=== PATIENT | female | born 1960 | race Caucasian/White ===

== ENCOUNTER 2018-05-21 08:22 | Emergency (ER) | payer OTHER, SELFPAY ==
[2018-05-21 08:24] VITALS: BP 199/116; PULSE 81; RESP 17; TEMP 36.6; O2SAT 97; BMI 38.9
[2018-05-21 08:42] VITALS: BP 190/96; PULSE 77; RESP 16; O2SAT 97
--- NOTE | 2018-05-21 08:51 | RAD_ITS ---
STUDY: X-RAY - LEFT KNEE REASON FOR EXAM: Female, 57 years old. Patient fell in 2017. Pain since then. TECHNIQUE: 3 view(s) of the knee. COMPARISON: None. FINDINGS: Normal visualized distal femur. Normal visualized proximal tibia and fibula. Normal proximal tibiofibular articulation. Normal medial femorotibial compartment. Normal lateral femorotibial compartment. Normal patellofemoral articulation. The soft tissue structures are unremarkable. RAD/Knee 3 Views IMPRESSION: No recent or remote fracture or dislocation of the left knee. Electronically Signed: David Costello MD at 9:15 EST , Service support ,
[2018-05-21] MEDS: Ketorolac 15 MG/ML Vial IV (09:11)
[2018-05-21] MEDS: Ondansetron 4 MG/2 ML Vial IV (09:18)
[2018-05-21] MEDS: Morphine 4 MG/ML Syringe IV (09:20)
--- NOTE | 2018-05-21 10:15 | ED.VISSUMM ---
- ER Visit Summary Date of Service: 05/21/18 Chief Complaint: Left knee pain History of Present Illness: The patient is a 57 F who states she had a work-related injury dating back to 2017. She states MRI that was performed at a [facility] where she lived at that time revealed a fusion and by lateral meniscus injuries. She has not undergone repair since this is a work-related injury, according to the patient. She states she went down one step and felt a tear and fell. She presents with severe pain. Physical Examination: There appears to be slight swelling of the left knee compared to the right. The patella is not ballotable. Unable to appreciate secondary to body habitus if she has an effusion. Varus valgus stress testing is remarkable for significant laxity with no appreciable endpoint of the lateral collateral ligament. Attempt to perform Jose's test and modified Simone's test resulted in patient screaming and unable to perform test. There is no pain to palpation in the popliteal fossa. There is no palpable mass in the popliteal fossa. She is able to hold her leg in extension for 2-3 seconds before lowering her leg because of pain. DP and PT pulses are palpable. There is no pain the patient the pelvis or left hip. There is no pain the patient of the lateral or medial malleolus. Test Results: Three-view x-ray was obtained interpreted by me as negative. There is no fracture, subluxation or dislocation. The patella is not high riding. There is no pull off fracture of the tibial spines. There is no obvious effusion noted. Emergency Department Course and Treatment: X-ray was obtained to evaluate for fracture. Treatment Plan: Knee immobilizer since she has an unstable knee and crutches. She was referred to Dr. Alberto Pringle who is on-call for orthopedics Disposition: Discharge to home with family Impression: Lateral collateral ligament tear left secondary to fall initial encounter This note was generated with InfoVista dictation software. It may contain incorrect words, spelling, and punctuation that were not noted in review of the chart prior to signing ED Disposition - Plan for ED Patient: Disposition: Home or Assisted Living Instructions: ED Sprain Knee Collateral Ligaments Prescriptions: Hydrocodone Bitart/Apap 5-325 [[place] 5MG-325MG] 1 tab PO Q6H PRN PRN 3 Days #10 tab PRN Reason: Pain Referrals: Care Physician,No Primary [Primary Care Provider] - Virgil Pringle MD [STAFF PHYSICIAN] - 5-7 Days
--- NOTE | 2018-05-21 10:19 | ED.DCSUM_ITS ---
- ER Visit Summary Date of Service: 05/21/18 Chief Complaint: Left knee pain History of Present Illness: The patient is a 57 F who states she had a work- related injury dating back to 2017. She states MRI that was performed at a [facility] where she lived at that time revealed a fusion and by later al meniscus injuries. She has not undergone repair since this is a work-related injury, according to the patient. She states she went down one step and felt a tear and fell. She presents with severe pain. Physical Examination: There appears to be slight swelling of the left knee compared to the right. The patella is not ballotable. Unable to appreciate secondary to body habitus if she has an effusion. Varus valgus stress testing is remarkable for significant laxity with no appreciable endpoint of the lateral collateral ligament. Attempt to perform Jose's test and modified Simone's test resulted in patient screaming and unable to perform test. There is no pain to palpation in the popliteal fossa. There is no palpable mass in the popliteal fossa. She is able to hold her leg in extension for 2-3 seconds before lowering her leg because of pain. DP and PT pulses are palpable. There is no pain the patient the pelvis or left hip. There is no pain the patient of the lateral or medial malleolus. Test Results: Three-view x-ray was obtained interpreted by me as negative. There is no fracture, subluxation or dislocation. The patella is not high riding. There is no pull off fracture of the tibial spines. There is no obvious effusion noted. Emergency Department Course and Treatment: X-ray was obtained to evaluate for fracture. Treatment Plan: Knee immobilizer since she has an unstable knee and crutches. She was referred to Dr. Alberto Pringle who is on-call for orthopedics Disposition: Discharge to home with family Impression: Lateral collateral ligament tear left secondary to fall initial encounter This note was generated with Mieple dictation software. It may contain incorrect words, spelling, and punctuation that were not noted in review of the chart prior to signing ED Disposition - Plan for ED Patient: Disposition: Home or Assisted Living Instructions: ED Sprain Knee Collateral Ligaments Prescriptions: Hydrocodone Bitart/Apap 5-325 [[place] 5MG-325MG] 1 tab PO Q6H PRN PRN 3 Days #10 tab PRN Reason: Pain Referrals: Care Physician,No Primary [Primary Care Provider] - Virgil Pringle MD [STAFF PHYSICIAN] - 5-7 Days
== END 2018-05-21 11:10 | disposition home or self-care (01) ==
PROVIDERS: Emergency Provider Emergency Medicine
DX: S83.422A Sprain of lateral collateral ligament of left knee, initial encounter (principal); W10.9XXA Fall (on) (from) unspecified stairs and steps, initial encounter; Y93.9 Activity, unspecified; Y92.9 Unspecified place or not applicable; Y99.0 Civilian activity done for income or pay; E66.9 Obesity, unspecified; Z68.38 Body mass index [BMI] 38.0-38.9, adult; Z72.0 Tobacco use
CPT/HCPCS: 73562; 96374; 96375; 99285; J7030; A4216; J2405

== ENCOUNTER → 2020-06-13 15:59 | Outpatient (CLI) | payer OTHER, SELFPAY ==
--- NOTE | 2020-06-13 16:05 | RAD_ITS ---
HISTORY: CONTUSION KNEE Technique: 4 views of the right knee Comparison: June 13, 2020, 6 minutes earlier of the left knee. Findings: No acute fracture is perceived. Within the medial retinaculum there appears to be an ossification. Osseous mineralization, joint spaces, and alignment otherwise appear preserved as imaged. No focal abnormality or radiopaque foreign body is seen in the surrounding soft tissues. RAD/Knee 4 or More Views IMPRESSION: No acute osseous abnormality identified in the knee. at 0641 Reported and signed by: Fidencio Foss MD Electronically Signed: Fidencio Foss MD at 6:40 EST Tel , Service support ,
--- NOTE | 2020-06-13 16:05 | RAD_ITS ---
HISTORY: CONTUSION KNEE Technique: 4 images of the left knee Comparison: May 21, 2018 Findings: No acute fracture is perceived. There is a prominent medial tibial spine with likely an osteophyte on the spine. This is slightly more prominent than the previous study. Small osteophyte on the medial aspect of the medial portion of the tibial plateau. Minimal patellofemoral arthritis. No focal abnormality or radiopaque foreign body is seen in the surrounding soft tissues. RAD/Knee 4 or More Views IMPRESSION: Some arthritis within the left knee display a greater degree than May 21, 2018 at 0643 Reported and signed by: Fidencio Foss MD Electronically Signed: Fidencio Foss MD at 6:42 EST Tel , Service support ,
== END ==
PROVIDERS: Referring Provider Anesthesiology Pain Medicine; Visit Provider Anesthesiology Pain Medicine
DX: S80.01XA Contusion of right knee, initial encounter (principal); M17.12 Unilateral primary osteoarthritis, left knee
CPT/HCPCS: 73564

== ENCOUNTER → 2021-10-28 | Outpatient (CLI) | payer BC, OTHER, SELFPAY ==
--- NOTE | 2021-10-28 14:12 | CT_ITS ---
STUDY: CT SCAN LOWER EXTREMITY LEFT REASON FOR EXAM: Female, 61 years old. PREOP for left knee replacement. [facility] protocol RADIATION DOSAGE (If Supplied By Facility): CTDIvol = ( 20.10 ) mGy, DLP = ( 1231.82 ) mGycm. Individualized dose optimization techniques were used for this CT.? TECHNIQUE: Multiple axial tomographic images of the left lower extremity were obtained. Coronal and sagittal reconstruction was obtained as well. COMPARISON: None. FINDINGS: Imaging of the left hip joint was obtained. No significant joint space narrowing is seen. No significant bone abnormality is present. Imaging of the left knee joint was obtained. There is a moderate degree of joint space narrowing of the medial compartment of the knee joint with degenerative spur formation of the distal lateral femoral condyle. Mild degree of joint space narrowing of the patellofemoral joint. There is a 1.3 cm x 0.5 cm well-corticated bony fragment along the posterior aspect of the knee joint suggestive of possible loose body. There are 2 small rounded calcification this deep subcutaneous tissues overlying the lateral proximal tibia. Imaging of the ankle joint was obtained. No significant abnormality is seen. CT/Extremity Lower without Contra IMPRESSION: Osteoarthritis of the knee joint as described. Electronically Signed: Erick Wells MD at 14:49 EDT ,
== END | disposition home or self-care (01) ==
PROVIDERS: PCP Internal Medicine; Referring Provider Specialist; Visit Provider Specialist
DX: M17.2 Bilateral post-traumatic osteoarthritis of knee (principal)
CPT/HCPCS: 73700

== ENCOUNTER 2021-11-11 15:34 | Observation (INO) | payer OTHER, BC, SELFPAY ==
--- NOTE | 2021-10-27 14:24 | PCM.HP.BLA ---
History and Physical History and Physical [facility] Patient Name: Lashay Barron : 1960 From:? MICHELLE PEDERSEN PA-C? DATE OF SURGERY:? 11/11/2021 SCHEDULED PROCEDURE:? left total knee arthroplasty HISTORY OF PRESENT ILLNESS: Preoperative history and physical exam was performed on October 26, 2021.? This is a 61-year-old female who is been having pain since 2017 with bilateral knees.? The left knee has been worse than the right.? She states the right knee is also progressively getting worse.? Patient did have a work injury with both knees on December 20, 2016 when she fell onto both knees at that time.? Her pain is located over the medial joint line bilaterally and laterally over the left knee.? Pain does occasionally awaken her at night.? Patient states her pain and symptoms have continued to increase and she is getting locking in the left knee.? Her pain has been intermittent, aching, sharp, stabbing, sore.? It is increased with going up and down stairs, sitting, walking.? She has difficulty with activities of daily living including bathing, housework, shopping.? She has fallen in the past.? She feels unsafe kneeling on her knees due to the pain.? Patient has had previous corticosteroid injections.? She has had previous bilateral knee arthroscopies by outside physician.? Patient had left knee arthroscopy partial medial and lateral meniscectomy on September 28, [address] Whitman.? Patient also had previous right knee arthroscopy on February 12, 2019 involving medial femoral chondroplasty and partial lateral meniscectomy.? Patient has been using a cane for approximately 6 months for ambulatory assistance.? She has been wearing braces for over 2-1/2 years.? Despite conservative measures patient has continued to have increased knee pain bilaterally.? Right knee is continuing to get worse as well.? After failing conservative measures and discussing treatment options with Dr. Virgil Pringle, the patient does wish to proceed with a left total knee arthroplasty.? Patient currently denies any chest pain, shortness of breath, fevers chills, recent infections.? We are obtaining surgical clearance from the primary care physician Dr. Rodriguez.? Patient does have medical history pertinent for Depression, anxiety, peripheral vascular disease.? Patient denies any previous history of DVT or pulmonary embolism. REVIEW OF SYSTEMS: Review Of Systems: Constitutional: Denies anorexia, change in appetite, fever, difficulty sleeping, weight change. Cardiovasular: Reports heart murmur, but denies chest pain, irregular heartbeat and peripheral vascular disease. Respiratory: Reports asthma, but denies cough, pneumonia, sleep apnea, shortness of breath, tuberculosis and wheezing. Gastrointestinal: Denies constipation, diarrhea, heartburn, nausea, rectal itching, bloody stools and vomiting. Genitourinary: Denies incontinence. Musculoskeletal: Reports leg swelling, pain, trouble walking and weakness. Skin: Denies Raynaud's, history of shingles and tattoo. Neurological: Reports numbness/tingling but denies ambulatory dysfunction, dizziness and tremor. Psychiatric: Reports depression, but denies anxiety, insomnia, mental illness and stress. Hematologic/Lymphatic: Denies anemia, bleeding/bruising tendency and past transfusion. Reviewed and updated. PAST MEDICAL HISTORY: Advance Care Plan: No Advance Directives Effective Date: 10/03/2019 Past Medical History: Medical Problems: Arthritis, Vascular Disease/ Peripheral, Depression, anxiety Accidents: Fall - (12/20/2016) HIT BOTH KNEES ON CONCRETE Surgical Hx: Shoulder Arthroscopy Rt - X2 Gallbladder, Appendectomy, LT Knee Surgeries, RT Knee Surgies Anesthesia Complications: None Assistive Devices: Cane Reviewed and updated. SOCIAL HISTORY: Social History: Marital: Single.Occupation: Unemployed.Work Status: Not Working Currently.Hand Dominance: Right-handed. Personal Habits:? Cigarette Use: Currently smokes, Light tobacco smoker (10 or fewer cigarettes/day).Smokeless Tobacco: Never Used Smokeless Tobacco.E-Cigarette Use: Never used.Alcohol: Denies use.Drug Use: Denies Use.Enjoy Exercising: Exercises 1-3 X/Week. Reviewed and updated. VITALS: Ht: 63 Wt: 236lb Wt k.050 BMI: 41.8 BP: 128/78 Pulse: 87 Resp: 16 T: 97.7 T: 36.5C Pain Level: 5 O2SatR: 98 ALLERGIES: Tetracycline? MEDICATIONS: Protonix 40 mg 1po qday, Amitriptyline HCL 100 mg 1 by mouth every day, Pristiq 100 mg 1 po daily, Hydroxyzine HCL 25 mg take 1 PO every 4 hours prn, Nabumetone 750 mg take 1 tablet by mouth twice daily with food, Fluoxetine HCL 20 mg Take 1 capsule by mouth once daily. PRE-OP EXAM:? General appearance:NORMAL? ? ? Other: Eyes: Conjunctivae and lids: NORMAL? Pupils: ERR Ears, Nose, Mouth, and Throat: NORMAL? Other: Inspection of lips, teeth and gums: NORMAL? ?Other: Neck: Examination of neck: no masses noted. Respiratory: Assessment of respiratory effort: NORMAL? ?Other: ?Auscultation of lungs: clear to auscultation no wheezes, rhonchi or rales. Cardiovascular:? Auscultation of heart: regular rate and rhythm, positive systolic murmur, no gallops or rubs. PHYSICAL EXAMINATION: Patient does walk with an antalgic gait.? Left knee is cool to touch but does have large effusion.? She has exquisite tenderness to palpation over the medial joint line and lateral joint line.? Range of motion: Lacks 5 full extension to 114 flexion.? She has fixed valgus alignment.? Stable to varus/valgus stress test, stable to anterior/posterior drawer exam.? Sensation intact to light touch. IMAGING STUDIES: Previous x-rays of the left knee reveal valgus alignment with lateral joint space narrowing, subchondral sclerosis, osteophyte formation consistent with moderate to severe stage IV tricompartmental osteoarthritis IMPRESSION: 1.? Moderate to severe left knee osteoarthritis with valgus alignment 2.? Right knee pain 3.? Depression 4.? Anxiety 5.? Peripheral vascular disease PLAN: Dr. Virgil Pringle did discuss and review with the patient all treatment options including surgical versus nonsurgical options.? Patient does wish to proceed with the above-stated procedure.? Potential risks, benefits, and complications of the procedure were discussed in detail including but not limited to , infection, nerve and blood vessel damage, persistent pain, numbness, tingling, paresthesias, blood clot, pulmonary embolism, and requirement for possible further surgery.? The patient expressed full understanding and has no further questions for the doctor.? Patient does agree to proceed with the above-stated procedure and has signed the surgery consent form. We discussed the current risks associated with COVID 19.? This does include the risk of exposure while in the hospital.? Patient was reassured local hospitals have low infection rates and are taking all necessary precautions to avoid exposure to patients.? In addition, we discussed strategies that can be used to help limit exposure including those that limit the patient's time in the hospital.? Also using strategies to limit the patient's need for continued inpatient services after being discharged from the hospital.? Patient was notified that we will need to comply with any screening or testing the hospital wishes to perform or that surgery may be delayed for any positive results. This dictation was created using voice recognition software. Phonetic and/or grammatical errors may exist. ___? I have re-examined the patient.? There are no clinical changes since date of exam. ___? See progress notes for changes. ___? Dictated on admission Date: ? ? ?Time: Signature:
--- NOTE | 2021-11-03 13:40 | EKG12_ITS ---
Test Reason : PRE-OP Blood Pressure : / mmHG Vent. Rate : 087 BPM Atrial Rate : 087 BPM P-R Int : 138 ms QRS Dur : 130 ms QT Int : 396 ms P-R-T Axes : 052 -45 007 degrees QTc Int : 476 ms Normal sinus rhythm Left axis deviation Right bundle branch block Abnormal ECG Confirmed by CATHERINE TAPIA, ERICK ([id number]), greeting card editor MIKAEL BHARDWAJ ([id number]) on 11/04/2021 12:43:41 PM Referred By: Virgil Pringle Confirmed By:ERICK ALEXANDER MD
[2021-11-03 14:19] LABS: Absolute Neutrophil Count 5.4 X10^3/uL (2.0-7.7); Basophil# 0.07 X10^3/uL; Basophil% 0.7 % (0-1); Eosinophil# 0.17 X10^3/uL; Eosinophils% 1.8 % (0-5); Hematocrit 45.4 % (37-47); Hemoglobin 15.2 g/dL (12.0-15.0); Lymphocyte % 33.1 % (19-41); Mean Corp Hgb Conc 33.5 g/dL (32-36); Mean Corpuscular Hgb 30.6 pg (27.0-32.0); Mean Corpuscular Volume 91.3 fL (81-99); Mean Platelet Vol. 12.3 fl (6.2-12.0); Monocyte# 0.62 X10^3/uL; Monocyte% 6.6 % (0-10); NRBC Flagged by Analyzer 0 % (0-5); Neutrophil # 5.39 X10^3/uL (2.7-7.7); Neutrophil % 57.6 % (47-70); Platelet Count 182 K/mm3 (150-450); RBC Distribution Width CV 13.6 % (11.6-14.6); Red Blood Count 4.97 M/mm3 (4.2-5.4); White Blood Count 9.4 K/mm3 (4.4-11.0)
[2021-11-03 14:41] LABS: Albumin, Serum 3.5 g/dL (3.2-5.0); Anion Gap 4 (5-15); BUN 11 mg/dL (7-18); BUN/Creat Ratio 11.9 RATIO (10-20); Calcium,Total 8.9 mg/dL (8.5-10.1); Chloride 108 mmol/L (98-107); Creatinine, Serum 0.92 mg/dL (0.55-1.02); EST Glomerular Filtration Rate 66 mL/min (>60); Est Glom Filt Rate - Afr Amer 80 mL/min (>60); Glucose 103 mg/dL (74-106); Potassium 4.3 mmol/L (3.5-5.1); Sodium Level 138 mmol/L (136-145)
[2021-11-03 14:42] LABS: Magnesium 1.9 mg/dL (1.6-2.6)
[2021-11-11] VITALS (10 sets, daily range): BP systolic 117–161; BP diastolic 64–100; PULSE 64–94; RESP 16–18; TEMP 36.1–37.1; O2SAT 90–100; BMI 42.1
--- NOTE | 2021-11-11 07:33 | OP.PCM_ITS ---
Report of Operation Date of Procedure: 11/11/21 Pre-Operative Diagnosis: Left knee primary osteoarthritis Post-Operative Diagnosis: Left knee primary osteoarthritis Surgery/Procedure Performed:: Left knee minimally invasive robotic assisted total knee replacement Description of Surgical Findings:: Stable knee with good patella tracking Surgeon: Virgil Pringle wheel assembler: Dominic Salazar Type of Anesthesia: General Anesthesiologist: Damian Marshall Special Medications: 2 g Ancef, 1 g TXA at incision, 1 g TXA closure, 10 mg Decadron, joint cocktail (5 mg Duramorph, 30 mL of 0.5% Ropivicaine, 1000 units of epinephrine, 30 mg of Toradol) Specimen's removed: Bony cuts Estimated Blood Loss (mL): 250 Fluids Replaced: 1100 mL crystalloid Description of Procedure: Implants used: 1. [place] size 3 triathlon cruciate retaining distal femoral press-fit component 2. [place] size 3 press-fit tritanium tibial baseplate 3. [place] X3 10 mm CS polyethylene 4. [place] X3 29 asymmetric patella Brief history operative indications: 61-year-old female with history of left knee osteoarthritis with radiographic findings with loss of joint space, osteophyte formation and subchondral sclerosis. Failed conservative measures as mentioned in the H&P. Discussion of total knee arthroplasty as well as risk and benefits were discussed the patient including but not limited to blood loss, DVTs, PEs, neurovascular damage, general risk of anesthesia including loss of life, and stiffness or instability were discussed with patient. Patient demonstrated understanding and was able to sign informed consent. Procedure: On the date of procedure patient's left lower extremity was marked in the preoperative area. The patient was then taken back to the operating room where the patient was placed on the table in the supine position. All bony prominences were identified a well-padded. Anesthesia assumed control of the C-spine and airway and remained controlled throughout the remainder of the procedure. A tourniquet was placed on the left upper thigh and the leg was prepped in a sterile fashion. The surgeon then scrubbed at this time .Upon reentering the room left lower extremity was draped in a standard orthopedic fashion. A timeout was then called and everyone agreed upon the side, the site, the procedure to be performed, patient's identity and antibiotics given. Esmarch bandage was used to exsanguinate the extremity and the tourniquet was placed up to 250 mmHg with the knee in flexion. A midline skin incision was made and sharp dissection was taken down through skin subcutaneous tissue and fat. The standard medial parapatellar incision was made and the patella was subluxed laterally. An Appropriate deep MCL release was done and the fat pad was resected. Our attention was then directed to the patella. The patella was everted and a flat resection was made. The knee was then flexed up in 2 femoral pins were placed inside the incision and 2 tibial pins were placed outside the incision in the medial tibia bicortically. Once this was completed the 2 checkpoints in the femur and tibia were placed. Knee was then flexed up and the bony landmarks were registered. Once this was completed knee was taken through range of motion and manually stressed allowing us to a plan for an appropriate tibial cut. The robotic arm was brought into the field sterilely and checkpoint and saw were registered. Based on the patient's deformity the tibial cut was made neutral to the tibial axis. At this time the tensioner was then placed in the joint and ligament tension was checked at 90 degrees and full extension. Based on the patient's ligamentous tension appropriate adjustments were made to the operative plan and ligament releases were done. Once we were happy with our operative plan with balanced flexion and extension gaps our attention was directed to the femur. The robot was brought into the field sterilely and registered. Posterior condylar cuts, anterior chamfer cuts and anterior cuts were appropriately made for a size 3 femur. When these were completed the saws were switched out in the distal femoral and posterior chamfer cuts were made. Protecting the soft tissue throughout this time. A size 3 tibial base plate was selected. the knee was flexed to 90 degrees and the soft tissues and posterior osteophytes were removed from the joint. 40 cc of the periarticular injection was injected into the posterior medial corner of the joint. The appropriate trials were then placed on the femur and tibia. A trial polyethylene was trialed to ensure proper balancing and stability of the knee. The appropriate tibial internal rotation was then marked with a bovie. Our attention was then directed to the patella. The lug holes were drilled and the patella trial was placed. Patellar tracking was checked and deemed appropriate. Once we were happy lug holes were drilled for the femur and trial components were removed. the tibia was subluxed and pinned into place and the keel was punched and drilled appropriately. Final components were verified and opened, and cement was mixed in a vacuum. [place] Simplex cement was used. The wound was copiously irrigated with normal saline. When the cement was ready the components were impacted into place starting with the tibia, femur and finally cementing the patella. The trial poly component was placed and the knee was placed in full extension. All excess cement was removed in the process. Once the cement had cured the tracking, alignment and balance were verified and a size 10 mm CS polyethylene component was placed. Once the final components were placed a 3-minute dilute Betadine lavage was performed followed by an Irrisept lavage was performed and the wound was copiously irrigated with normal saline solution and the periarticular injection was given. The wound was closed in a layer reynolds fashion using #1 vicryl interrupted sutures for the arthrotomy, 2-0 interrupted Vicryl suture for the subcuticular layer and sulaiman for final skin closure. A sterile compressive dressing was then placed. The patient was then awakened from anesthesia, transferred to the [facility] and transferred to the PACU for recovery. Post op plan DVT ppx: ASA 81mg BID, thigh high compression stockings Follow up: in office in 2 weeks for wound check PT: to start POD #0 at hospital, outpatient PT should be arranged. Bactrim DS twice daily for 2 weeks following surgery due to patient's BMI greater than 40 and high risk nature of postoperative infection complications My physician investigative assistant was a vital part of this case. He was important in appropriate retraction during the case, and protection of soft tissues during bony cuts. His intimate knowledge of the case and my steps aided in safe and expedient completion of the procedure as well as appropriate position of the leg during the case. He was also vital in assisting with closure under my direct supervision. Due to the complexity of this case robotic arm was used to assist in the surgery to improve accuracy and clinical outcomes. Complications No intraoperative complications Admit VTE Documentation VTE Present on Admission: No VTE Mechan Device Prophylaxis: SCD's and Thigh High MUNIR Hose VTE Pharm Prophylaxis ordered?: Yes
--- NOTE | 2021-11-11 07:35 | RAD_ITS ---
INDICATION: post op -- AP and Lateral xray of operative knee in PACU EXAMINATION/TECHNIQUE: X-RAY - LEFT XR Knee 1 or 2 Views 2 VIEWS COMPARISON: 06/13/2020. FINDINGS: Unremarkable alignment of the tibial and femoral components of the left knee prosthesis. No evidence of lucency surrounding the prosthesis. No evidence of cortical irregularity or lucency to suggest a fracture, no evidence of lytic or sclerotic bone lesion is seen. Soft tissue prominence is visualized overlying the anterior compartment with surgical sulaiman consistent with postoperative changes. RAD/Knee 1 or 2 Views IMPRESSION: Unremarkable left knee prosthesis with overlying postoperative changes. Electronically Signed: Kalpesh Shea MD at 15:14 EDT ,
[2021-11-11] MEDS: Lactated Ringers 1,000 ML 999 ML IV ×2 (09:25→14:30)
[2021-11-11] MEDS: Magnesium 2 GM IV (09:25)
[2021-11-11] MEDS: Celecoxib 200 MG Capsule 400 MG PO (09:27)
[2021-11-11] MEDS: Gabapentin 600 MG Tablet PO (09:27)
[2021-11-11] MEDS: Acetaminophen 500 MG Tablet 1000 MG PO ×2 (09:27→21:10)
[2021-11-11 10:20] LABS: Bedside Glucose 105 mg/dL (74-106)
[2021-11-11] MEDS: Lactated Ringers 1,000 ML 75 ML IV (11:15)
--- NOTE | 2021-11-11 11:45 | KNEE_PTH ---
PATIENT: DENISSE MCMULLEN LOC: MS3 U#:[id number] AGE/SX: 61/F ROOM: [facility] [place], [place] RE11/11/[address]: Dr. Virgil Pringle MD : 1960 BED: 1 DIS: 11/12/2021 SPEC #: [id number] RECD: 11/11/21 17:11 STATUS: OSEI REQ #: [id number] JESSICA: 11/11/21 11:[address]: Virgil Pringle DEPT: SURGICAL PATHOLOGY RECD BY: Jie Sheikh ENTERED: 11/12/21 09:40 SP TYPE: TOTAL KNEE OTHR DR: MD Dr. Juan C Ball MD Dr. Eric Jopperi, DO Tissues: Knee, NOS Procedures: Decalcification bone/plaque Surgery Specimen Level IV HEADER OPERATION: NICOLES, robotic assisted total knee arthroplasty PRE-OP DIAGNOSIS: Moderate to severe left knee osteoarthritis with valgus alignment TISSUE SUBMITTED: Bone and soft tissue of left knee MICROSCOPIC DIAGNOSIS Bone and tissue of left knee, total knee resection: Severe degenerative joint disease. AM:jamil 11/16/2021 MICROSCOPIC DESCRIPTION Slides are reviewed. GROSS DESCRIPTION Received is one container designated bone and soft tissue left knee. The specimen consists of multiple fragments of goldstein-yellow bone measuring in aggregate 10 x 9 x 3 cm. Also in the specimen container are multiple fragments of cartilaginous tissue measuring in aggregate 6 x 1.5 x 0.6 cm. A number of bony fragments contain articular surfaces consistent with tibial plateau and femoral condyle and displaying prominent osteophyte formation and bone erosion. Monument Erector sections are submitted in two cassettes as follows: 1 - soft tissue, 2 - bone after decalcification. / SJ:jamil 11/12/2021 TC:5 [facility]: [id number]
[2021-11-11] MEDS: Cefazolin 2 GM in 0.9% Normal Saline 100 ML IV (12:20)
[2021-11-11] MEDS: dexAMETHasone 10 MG/ML Vial IV (12:30)
[2021-11-11] MEDS: TXA 1000mg in NS100 100ml (IVPB at Incision) 660 MG IV (12:30)
[2021-11-11] MEDS: TXA 1000mg in NS100 100ml (IVPB at Closure) 660 MG IV (13:17)
--- NOTE | 2021-11-11 15:42 | PCM.CONS.GEN ---
Assessment & Plan Assessment/Plan (1) Arthritis: PLAN: This is a 61-year-old female admitted under orthopedic service for elective robotic assisted left TKR. 1. Primary osteoarthritis of bilateral knees, left worse than right status post robotic assisted left TKR: PT and OT. Patient did not had urination after surgery. Bladder scan and monitor urine output. VT prophylaxis as per orthopedic service. Pain control. 2. Blood pressure is 131/83, at 1 time 148/79. Unclear whether change in blood pressure is related to anesthetic medications. Needs outpatient BP management during ideal situation for diagnosis of hypertension. Patient does not have hypertension his past medical history. 3. Anxiety and depression: Continue lamotrigine. 4. Chronic smoker, nicotine dependence: Advised to quit smoking. Nicotine advised. 5. Soft systolic murmur possible MR: Patient is not having symptoms of shortness of breath/dyspnea or chest pain. She does not have history of coronary artery disease, stroke. Twelve-lead EKG individually reviewed. Normal sinus rhythm, LAD, RBBB at 87 bpm. No 2D echo in our system. 6. Other chronic comorbidities GERD: On PPI. HPI Consult Data Date of Consult: 11/11/21 HPI Narrative Reason for Consultation: Medical management chronic pain, depression. HPI Narrative: DENISSE MCMULLEN, is a 61 F who is admitted on orthopedic service for elective left knee minimally invasive robotic assisted TKR after many years of left knee primary osteoarthritis. Patient has history of bilateral knee pain since 2016, left knee worse than right. Patient had injury during work on [employer] in December 2016 when she fell onto both knees. Patient had left knee arthroscopy with partial medial lateral meniscectomy in September 2018. Patient was seen and examined after the knee surgery. Patient does not feel pain over left knee. Left knee has ice bag and Merlin wrapped. Past medical history: Patient has history of peripheral vascular disease, anxiety, depression, bilateral degenerative knee arthritis and lifelong smoker currently smokes e-cigarettes per day. FOR[facility]LY [facility], [facility] Medical History (Updated 11/11/21 @ 17:[address] Barrett Mccann MD) Ambulates with cane Anxiety Arthritis Chronic pain Depression Heart murmur Smoker Wears dentures Home Medications cholecalciferol (vitamin D3) 50 mcg (2,000 unit) tablet (Vitamin D3) 50 mcg PO DAILY 10/29/21 [History Last Taken Unknown] desvenlafaxine succinate 100 mg tablet,extended release 24 hr (Pristiq) 100 mg PO DAILY 10/29/21 [History Last Taken Unknown] fluoxetine 20 mg capsule (Prozac) 20 mg PO DAILY 10/29/21 [History Last Taken Unknown] hydroxyzine HCl 25 mg tablet 25 mg PO Q4H PRN Anxiety 10/29/21 [History Last Taken Unknown] lamotrigine 25 mg tablet 25 mg PO DAILY 10/29/21 [History Last Taken Unknown] nabumetone 750 mg tablet 1 tab PO BID 10/29/21 [History Last Taken Unknown] pantoprazole 40 mg tablet,delayed release 40 mg PO DAILY 10/29/21 [History Last Taken 11/11/21 07:30] Allergy/AdvReac Type Severity Reaction Status Date / Time bupropion [From Wellbutrin] Allergy Other Verified 11/11/21 09:18 tetracycline Allergy Hives Verified 11/11/21 09:18 Surgical History History of right knee joint replacement Hx of knee surgery Social History Smoking Status: Former smoker ROS ROS Narrative Constitutional: No fever or chills. Pain over knee is well controlled HEENT: No dizziness or vertigo. Reports systems reviewed and no addt'l complaints, except as documented Respiratory/Chest: Denies chest pain, shortness of breath at rest or with exertion Gastrointestinal: Denies coffee ground emesis, hematemesis or vomiting. No chronic constipation. No GI bleed Genitourinary: Denies burning urination or new urinary tract symptoms Musculoskeletal: Left knee with ice pack and dressing. Right knee deformed, degenerative arthritis Neurologic: Denies seizure-like activity skin: No ulcer. No rash Endocrinology: Reports systems reviewed and no addt'l complaints, except as documented Hematologic/Lymphatic: Reports systems reviewed and no addt'l complaints, except as documented Psychiatric: Anxiety and depression on lamotrigine Rest 14 ROS are negative except as mentioned in HPI Physical Exam Narrative General: Alert, Oriented x3, Cooperative, morbid obesity BMI 42.2 kg/m? HEENT: Atraumatic, PERRLA, EOMI, Normocephalic Oral: No Gingival or Mucosal Lesions/ Ulcerations Neck: Supple, No JVD, Negative Carotid Bruits Lungs: Air entry diminished in bilateral lung bases. No crepitation/rhonchi Cardiovascular: Regular rate, Regular Rhythm, Normal S1, Normal S2, soft systolic murmur over LLSB, grade 3/6. Abdomen: Bowel Sounds Present, Soft, Non Tender, Non-Distended : No renal angle tenderness. No suprapubic tenderness. Extremities: No edema, Capillary Refill Less than 3 Seconds Skin: No rashes, No breakdown Musculoskeletal: No Tenderness to Palpation of Joints or Extremities Neurological: Cranial nerves II-XII grossly intact, DTR 2+/4 and Symmetrical, Neuro grossly intact Psych/Mental Status: Normal Affect, Appropriate. Lab / Micro Data Result Diagrams: 11/03/21 13:34 11/03/21 13:34 Labs: Laboratory Results - last 24 hr 11/11/21 09:15: POC Glucose 105 Radiology Impression Knee X-Ray 11/11/21 07:35 IMPRESSION: Unremarkable left knee prosthesis with overlying postoperative changes. Electronically Signed: Kalpesh Shea MD at 15:14 EDT , Charges/Coding Visit Charges Office Visits / Consults: [id number] OP Consult L4
[2021-11-11] MEDS: Aspirin 81 MG TAB.CHEW PO (17:23)
[2021-11-11] MEDS: Smz/Tmp Ds Tablet 1 TABLET PO (17:24)
[2021-11-11] MEDS: Cefazolin 1 GM/50 ML BAG IV (20:31)
[2021-11-11] MEDS: Senna/Docusate Sodium 1 Tablet 2 TABLET PO (21:10)
[2021-11-11] MEDS: hydrOXYzine PAM 25 MG Capsule PO (21:11)
[2021-11-11] MEDS: oxyCODONE 5 MG Tablet PO (23:31)
[2021-11-12 02:30] VITALS: BP 119/67; PULSE 77; RESP 18; TEMP 36.6; O2SAT 96
[2021-11-12] MEDS: Cefazolin 1 GM/50 ML BAG IV (04:19)
[2021-11-12] MEDS: 0.9% Saline Lock 10 ML Syringe IV (04:20)
[2021-11-12] MEDS: oxyCODONE 5 MG Tablet PO ×3 (04:23→12:06)
[2021-11-12] MEDS: Acetaminophen 500 MG Tablet 1000 MG PO ×2 (06:08→14:27)
[2021-11-12 06:30] LABS: Hematocrit 36.2 % (37-47); Hemoglobin 11.5 g/dL (12.0-15.0); Mean Corp Hgb Conc 31.8 g/dL (32-36); Mean Corpuscular Hgb 29.3 pg (27.0-32.0); Mean Corpuscular Volume 92.1 fL (81-99); Mean Platelet Vol. 12.1 fl (6.2-12.0); Platelet Count 161 K/mm3 (150-450); RBC Distribution Width CV 13.8 % (11.6-14.6); RBC Distribution Width SD 46.7 fl (35.1-43.9); Red Blood Count 3.93 M/mm3 (4.2-5.4); White Blood Count 14.6 K/mm3 (4.4-11.0)
[2021-11-12 06:31] LABS: Anion Gap 5 (5-15); BUN 13 mg/dL (7-18); BUN/Creat Ratio 15.6 RATIO (10-20); Calcium,Total 7.8 mg/dL (8.5-10.1); Chloride 108 mmol/L (98-107); Creatinine, Serum 0.83 mg/dL (0.55-1.02); EST Glomerular Filtration Rate 74 mL/min (>60); Est Glom Filt Rate - Afr Amer 90 mL/min (>60); Estimated Creatinine Clearance 58.88 ml/min; Glucose 114 mg/dL (74-106); Potassium 4.1 mmol/L (3.5-5.1); Sodium Level 139 mmol/L (136-145)
[2021-11-12] MEDS: Senna/Docusate Sodium 1 Tablet 2 TABLET PO (08:10)
[2021-11-12] MEDS: Venlafaxine XR 75 MG Capsule PO (08:10)
[2021-11-12] MEDS: Famotidine 20 MG Tablet PO (08:10)
[2021-11-12] MEDS: Ensure Surgery 237 ML LIQUID PO (08:10)
[2021-11-12] MEDS: Pantoprazole Sodium 40 MG Tablet PO (08:10)
[2021-11-12] MEDS: FLUoxetine 20 MG Capsule PO (08:11)
[2021-11-12] MEDS: Cholecalciferol (VIT D3) 25 MCG TABLET (1,000 UNITS) 50 MCG PO (08:11)
[2021-11-12] MEDS: Smz/Tmp Ds Tablet 1 TABLET PO (08:11)
[2021-11-12] MEDS: lamoTRIgine 25 MG Tablet PO (08:11)
[2021-11-12] MEDS: Aspirin 81 MG TAB.CHEW PO (08:12)
[2021-11-12 08:13] VITALS: BP 110/90; PULSE 74; RESP 18; TEMP 36.3; O2SAT 99
[2021-11-12 10:12] VITALS: O2SAT 99
--- NOTE | 2021-11-12 10:50 | PCM.PN.ORT ---
Subjective Subjective The patient was sitting in bedside chair upon examination. Patient denies any chest pain, shortness of breath, dizziness, lightheadedness, nausea or vomiting, or calf pain. Pain is controlled on medications. No adverse overnight events. Patient overall is doing very well. Patient tolerated therapy very well. She does wish to go home today.. Objective Data Objective Data Vital Signs: Vital Signs Temp Pulse Resp BP Pulse Ox O2 Del Method O2 Flow Rate 97.4 F L 74 18 110/90 H 99 Room Air 2 11/12/21 08:13 11/12/21 08:13 11/12/21 08:13 11/12/21 08:13 11/12/21 10:12 11/12/21 08:13 11/11/21 15:53 Oxygen Flow Rate (L/min) 2 Oxygen Delivery Method Room Air Weight: 108 kg Body Mass Index (BMI) 42.1 Intake & Output: Intake and Output for Last 24 Hours 11/10/21 11/11/21 11/12/21 23:59 23:59 23:59 Intake Total 3484.00 / 3484.00 50 / 50 Balance 3484.00 / 3484.00 50 / 50 Lab / Micro Data Result Diagrams: 11/12/21 04:56 11/12/21 04:56 Labs: Laboratory Results - last 24 hr 11/12/21 04:56: WBC 14.6 H, RBC 3.93 L, Hgb 11.5 L, Hct 36.2 L, MCV 92.1, MCH 29.3, MCHC 31.8 L, RDW Std Deviation 46.7 H, RDW Coeff of Niecy 13.8, Plt Count 161, MPV 12.1 H 11/12/21 04:56: Sodium 139, Potassium 4.1, Chloride 108 H, Carbon Dioxide 26.0, Anion Gap 5, BUN 13, Creatinine 0.83, Estim Creat Clear Calc 58.88, Est GFR (MDRD) Af Amer 90, Est GFR (MDRD) Non-Af 74, BUN/Creatinine Ratio 15.6, Glucose 114 H, Calcium 7.8 L Micro: Microbiology 11/03/21 13:34 Interface Orders Nasal Screen MRSA/MSSA - Final Radiography Diagnostic Testing: Radiology Impression Knee X-Ray 11/11/21 07:35 IMPRESSION: Unremarkable left knee prosthesis with overlying postoperative changes. Electronically Signed: Kalpesh Shea MD at 15:14 EDT , Physical Exam Narrative Vital signs stable and afebrile. MUNIR hose and SCDs are in place bilaterally Patient is able to plantarflex and dorsiflex actively. Sensation is intact to light touch to saphenous, sural, superficial and deep peroneal, and tibial distribution. Dressing is clean dry and intact. Negative Homans bilaterally, negative signs and symptoms of DVT. Const alert, oriented x3 and no apparent distress Assessment & Plan Assessment/Plan (1) Status post total left knee replacement: PLAN: 1. S/P left total knee arthroplasty POD #1 2. Continue Pain Medications: Tylenol and oxycodone. Patient does take Relafen at home. She was instructed not to take any other nonsteroidal anti-inflammatories with this medication. 3. DVT Prophylaxis: Take 81 mg aspirin twice daily for 4 weeks postoperatively for DVT prophylaxis. Patient denies previous history of DVT or pulmonary embolism 4. PT/OT: Weightbearing as tolerated with walker 5. H & H: 11.5/36.2, asymptomatic. Postoperative anemia secondary to acute blood loss from surgery without any intra operative complications. 6. Reactive leukocytosis: Currently 14.6, afebrile. Patient did receive Decadron intraoperatively 7. Continue postoperative medical management per medicine 8. Continue antibiotics for 2 weeks postoperatively: Currently on Bactrim. This is due to increased risk of postoperative infection/complications due to elevated BMI. She was instructed to take probiotic while on the antibiotic for 2 weeks postoperatively 9. Encouraged Incentive Spirometry 10. Disposition: Orthopedically patient is stable. Plan will be for discharge home today as long as medically cleared. Prescriptions will be E scribed to [facility]. We discussed all medications in detail. Patient will follow-up per postop instructions. She has outpatient physical therapy established. Upon discharge she will contact her office with any concerns or questions. I have reviewed the [place] Automated Rx Reporting System (OARRS) report for this patient for refill pattern and other prescriber involvement as part of the appropriate surveillance for the provision of acute and chronic controlled medications. The report was requested and reviewed on the date of this entry and was considered in the prescribing process. This dictation was created using voice recognition software. Phonetic and/or grammatical errors may exist.
--- NOTE | 2021-11-12 10:55 | CASEMGMT ---
TONEY HOLMAN Assessment: Face to Face with pt for initial transition planning/care coordination assessment. TONEY HOLMAN introduced self and role at [facility], pt voices understanding and consents to assessment. Pt is A/O x4 and answers all questions appropriately at this time. Pt sitting up in bed in no distress with friend Carmen at bedside. Care providers, pharmacy, and demographics verified/updated. Admitting Dx: L TK with Agustín PCP: Michael Specialists: jeancarlos Pringle; pierre Styles mgmt Preferred Pharmacy: [facility] Retail Insurance: The car easily beat, [employer] Prescription Benefit: yes LW/HPOA: Pt denies having a LW/DPOA and denies need for info regarding AD. 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 Pt states there is a pole she can hold onto to help her up the steps. Pt reports prior to surgery she was I in ADL's and denies concerns at home. Transportation: Pt drives self and denies concerns with transportation. Pt friend is able to transport her to medical appts until she can drive again. DME/HHC/SNF: Pt has a FWW and high rise toilet at home. Denies hx of HHC or SNF stays. Pt states no concerns with going home at time of dc. She has outpt therapy set up at [facility] on Tuesday at 2pm. Pt states no further concerns/needs. CM to follow. Advised pt to ask CM if any further question/concerns/needs arise, voices understanding. Pt Goal: Home with outpt therapy set up. Plan: Home with outpt therapy set up.
--- NOTE | 2021-11-12 10:55 | DCINST_ITS ---
Discharge Instructions Diet Discharge Diet: No restrictions Activity Discharge Activity: May Not Drive (No driving until off all narcotics and can walk 100 feet without the use of cane or walker) May shower in (days): 1 (Please turn dressing away from water. Okay to get wet as long as dressing is intact to skin.) Ice area for (Minutes): 20 (Every 1-2 hours while awake. Please place barrier between the skin and ice pack.) Weight Bearing Status: Weight bearing as tolerated (With walker) Keep extremity elevated above heart level: Operative Extremity Dressing / Incision Call your doctor if your incision/area has: Continuous Slow Oozing, Sudden Increased Bleeding, Increased Pain/ Swelling, Increased Redness and Foul Smelling Discharge Call your doctor if you observe: Fever of 101 or Higher, Coldness, Increased Pain, Numbness or Tingling, Change in Color, Shortness of breath, Chest pain, Calf discomfort and Uncontrolled pain Remove Dressing in: 4 days (Okay to remove dressing on November 16, 2021) Additional Dressing/Incision Instructions:: Follow [facility] Post-op Instructions. Once postoperative dressing has been removed only use gentle soap and water over the incision. Do not use any ointments, Neosporin, salves, hydrogen peroxide, alcohol pads over the incision for 6 weeks postoperatively. Do not submerge underwater for 6 weeks postoperatively. Continue with MUNIR hose/elastic stockings for 2 weeks postoperatively. May rem ove at nighttime but needs to be placed back on the leg during the day. Do NOT use alcohol with narcotic pain medication. Do NOT make important decisions while taking narcotic medication. If you have problems with taking your medication (rash, itching, nausea, etc.) call the office at once. Follow Up Care Test Results: Test results from this visit will be discussed in further detail at your follow- up appointment, if applicable. Discharge Plan Admission Admit Date/Time: 11/11/21 15:34 Attending Provider: Virgil Pringle Primary Care Provider: Romi Rodriguez Consulting Providers: Juan C Larson ; Juan C Santamaria Discharge Orders/Prescriptions Prescriptions: New acetaminophen 500 mg Tablet 1,000 mg PO Q8 Qty: 100 0RF Rx Instructions: Do not take more than 3000 mg Tylenol in a 24-hour period. aspirin 81 mg capsule 81 mg PO BIDCM 30 Days Qty: 60 0RF Rx Instructions: Take 81 mg aspirin twice daily for 4 weeks postoperatively for DVT prophylaxis. oxycodone 5 mg Tablet 5 - 10 mg PO Q4H PRN PRN (Reason: Pain Score 4-10) 5 Days Qty: 60 0RF sennosides-docusate sodium [Stool Softener-Stimulant Laxat] 8.6-50 mg Tablet 2 tab PO BID Qty: 20 0RF Rx Instructions: Take until first bowel movement, then as needed sulfamethoxazole-trimethoprim 800-160 mg Tablet 1 tab PO BIDCM 13 Days Qty: 26 0RF Rx Instructions: Take for 2 weeks postoperatively Continued nabumetone 750 mg tablet 1 tab PO BID Label Comments: TAKE 1 TABLET BY MOUTH TWICE DAILY WITH FOOD lamotrigine 25 mg Tablet 25 mg PO DAILY pantoprazole 40 mg Tablet,Delayed Release (Dr/Ec) 40 mg PO DAILY hydroxyzine HCl 25 mg tablet 25 mg PO Q4H PRN (Reason: Anxiety) Label Comments: TAKE 1 TABLET BY MOUTH EVERY 4 HOURS NEEDED fluoxetine [Prozac] 20 mg Capsule 20 mg PO DAILY desvenlafaxine succinate [Pristiq] 100 mg Tablet Extended Release 24 Hr 100 mg PO DAILY cholecalciferol (vitamin D3) [Vitamin D3] 50 mcg (2,000 unit) Tablet 50 mcg PO DAILY Other Ambulatory Orders: 12 Lead EKG (Routine) Location: None Selected Ordered By: Dr. Virgil Pringle Referrals / Follow Up: Physical,Therapy [Other] - 11/16/21 2:00 pm (with Ingris) Romi Rodriguez MD [Primary Care Provider] - Dominic Salazar PA-C [Med Staff - [facility] Practice Prof] - 11/26/21 3:15 pm Disposition Disposition (needs filled in before D/C Order can be placed): Home, Self Care
--- NOTE | 2021-11-12 11:54 | PN.HOSP_ITS ---
Subjective Subjective Follow-up for left TKR with multiple medical complications and soft systolic murmur Objective Data Objective Data Vital Signs: Vital Signs Temp Pulse Resp BP Pulse Ox O2 Del Method O2 Flow Rate 97.4 F L 74 18 110/90 H 99 Room Air 2 11/12/21 08:13 11/12/21 08:13 11/12/21 08:13 11/12/21 08:13 11/12/21 10:12 11/12/21 08:13 11/11/21 15:53 Oxygen Flow Rate (L/min) 2 Oxygen Delivery Method Room Air Weight: 238 lb 1.588 oz Body Mass Index (BMI) 42.1 Intake & Output: Intake and Output for Last 24 Hours 11/10/21 11/11/21 11/12/21 23:59 23:59 23:59 Intake Total 3484.00 / 3484.00 50 / 50 Balance 3484.00 / 3484.00 50 / 50 Lab / Micro Data Result Diagrams: 11/12/21 04:56 11/12/21 04:56 Labs: Laboratory Results - last 24 hr 11/12/21 04:56: WBC 14.6 H, RBC 3.93 L, Hgb 11.5 L, Hct 36.2 L, MCV 92.1, MCH 29.3, MCHC 31.8 L, RDW Std Deviation 46.7 H, RDW Coeff of Niecy 13.8, Plt Count 161, MPV 12.1 H 11/12/21 04:56: Sodium 139, Potassium 4.1, Chloride 108 H, Carbon Dioxide 26.0, Anion Gap 5, BUN 13, Creatinine 0.83, Estim Creat Clear Calc 58.88, Est GFR (MDRD) Af Amer 90, Est GFR (MDRD) Non-Af 74, BUN/Creatinine Ratio 15.6, Glucose 114 H, Calcium 7.8 L Micro: Microbiology 11/03/21 13:34 Interface Orders Nasal Screen MRSA/MSSA - Final Radiography Diagnostic Testing: Radiology Impression Knee X-Ray 11/11/21 07:35 IMPRESSION: Unremarkable left knee prosthesis with overlying postoperative changes. Electronically Signed: Kalpesh Shea MD at 15:14 EDT Reading Location ID and State: [facility] / [place] Tel , Service support , Physical Exam Narrative Patient is told and walked outside the room yesterday with help of physical therapy. General: Alert, Oriented x3, Cooperative, morbid obesity BMI 42.2 kg/m? HEENT: Atraumatic, PERRLA, EOMI, Normocephalic Oral: No Gingival or Mucosal Lesions/ Ulcerations Neck: Supple, No JVD, Negative Carotid Bruits Lungs: Air entry diminished in bilateral lung bases. No crepitation/rhonchi Cardiovascular: Regular rate, Regular Rhythm, Normal S1, Normal S2, soft systolic murmur over LLSB, grade 3/6. Abdomen: Bowel Sounds Present, Soft, Non Tender, Non-Distended : No renal angle tenderness. No suprapubic tenderness. Extremities: No edema, Capillary Refill Less than 3 Seconds Skin: No rashes, No breakdown Musculoskeletal: No Tenderness to Palpation of Joints or Extremities Neurological: Cranial nerves II-XII grossly intact, DTR 2+/4 and Symmetrical, Neuro grossly intact Psych/Mental Status: Normal Affect, Appropriate. Assessment & Plan Assessment/Plan (1) Arthritis: PLAN: This is a 61-year-old female admitted under orthopedic service for elective robotic assisted left TKR. 1. Primary osteoarthritis of bilateral knees, left worse than right status post robotic assisted left TKR: PT and OT. Patient had a spontaneous voiding of urine. VT prophylaxis as per orthopedic service. Pain control. 2. Blood pressure is 131/83, at 1 time 148/79. Unclear whether change in blood pressure is related to anesthetic medications. Needs outpatient BP management during ideal situation for diagnosis of hypertension. Patient does not have hypertension his past medical history. Recommend follow-up with PCP 3. Anxiety and depression: Continue lamotrigine. 4. Chronic smoker, nicotine dependence: Advised to quit smoking. Nicotine advised. 5. Soft systolic murmur possible MR: Patient is not having symptoms of shortness of breath/dyspnea or chest pain. She does not have history of coronary artery disease, stroke. Twelve-lead EKG individually reviewed. Normal sinus rhythm, LAD, RBBB at 87 bpm. No 2D echo in our system. Follow with PCP for 2D echo, recommended effusion noted in last 2 to 3 years 6. Other chronic comorbidities GERD: On PPI. Patient is medically stable for discharge by Ortho team Charges/Coding Visit Charges OBSV E&M: [id number] Initial observation care L2
[2021-11-12] MEDS: hydrOXYzine PAM 25 MG Capsule PO (14:27)
[2021-11-12 14:32] VITALS: BP 131/100; PULSE 90; RESP 18; TEMP 36.6; O2SAT 97
== END 2021-11-12 14:35 | disposition home or self-care (01) ==
LOC: SDC 15:35 → MS3 15:35
PROVIDERS: Anesthesiology; Admitting Provider Specialist; PCP Internal Medicine; Referring Provider Specialist; Visit Provider Specialist
PROC: 0SRD0JZ Replacement of Left Knee Joint with Synthetic Substitute, Open Approach (ICD-10-PCS; CPT 27447; principal; 2021-11-11 11:15)
DX: M17.12 Unilateral primary osteoarthritis, left knee (principal); I73.9 Peripheral vascular disease, unspecified; M21.062 Valgus deformity, not elsewhere classified, left knee; F32.A Depression, unspecified; F17.210 Nicotine dependence, cigarettes, uncomplicated; F41.9 Anxiety disorder, unspecified; Z79.899 Other long term (current) drug therapy; R01.1 Cardiac murmur, unspecified; I45.10 Unspecified right bundle-branch block; K21.9 Gastro-esophageal reflux disease without esophagitis
CPT/HCPCS: 27447; S2900; 01402; 64447; 36415; 73560; 80048; 82040; 82962; 83735; 85025; 85027; 87081; 88305; 88311; 93005; 96365; 96366; 97110; 97162; 97166; 97530; 99218; 99251; 99406; C1776; J7120; A4216; G0378; G0463; J2405

== ENCOUNTER → 2021-11-26 | Outpatient (CLI) | payer OTHER, SELFPAY ==
--- NOTE | 2021-11-26 16:05 | VDLE_ITS ---
Reason For Study: Edema Procedure LEFT This is a venous duplex using B-mode, color GSV is normal. flow and spectral Doppler. CFV is compressible, spontaneous, phasic, Exam performed in department. competent, and demonstrates normal A preliminary report was called and/or faxed augmentation. to Marie. FV is compressible, spontaneous, phasic, competent and demonstrates normal augmentation. FV mid-distal visualized with color only, appears patent. Patient unable to tolerate compression. POP V is compressible, spontaneous, phasic, competent and demonstrates normal augmentation. T/P Trunk is compressible. PTV is compressible. LT PerV is compressible. VL/Venous Duplex US, Unilateral Interpretation Summary Deep veins of the left lower extremity are patent and compressible segmentally. There is no evidence of left lower extremity deep vein thrombosis. Valvular competence appears intac t within the proximal deep venous system on the left . The left great saphenous vein appears patent a nd compressible segmentally. Ordering Physician: Dominic Salazar Referring Physician: Romi Rodriguez Performed By: Juliann Olivier RVT
== END | disposition home or self-care (01) ==
PROVIDERS: PCP Internal Medicine; Referring Provider Physician Assistant Surgical; Visit Provider Physician Assistant Surgical
DX: R60.0 Localized edema (principal); I73.9 Peripheral vascular disease, unspecified; Z96.652 Presence of left artificial knee joint
CPT/HCPCS: 93971

== ENCOUNTER → 2022-07-09 | Outpatient (CLI) | payer OTHER, BC, SELFPAY ==
--- NOTE | 2022-07-09 12:55 | CT_ITS ---
EXAM: CT RIGHT LOWER EXTREMITY WITHOUT INTRAVENOUS CONTRAST CLINICAL INDICATION: OSTEOARTHRITIS, surgical planning TECHNIQUE: Helically acquired images were obtained of the right lower extremity without intravenous contrast. 2-D reformats were performed by the technologist. CTDIvol = ( 19.27 ) mGy, DLP = ( 1219.58 ) mGycm This CT exam was performed using one or more of the following dose reduction techniques: automated exposure control, adjustment of the mA and/or kV according to patient size, and/or use of iterative reconstruction technique. This report was created using [email or web address] report [employer] technology. COMPARISON: None. FINDINGS: BONES/JOINTS: At least moderate osteoarthrosis involving the right hip. No significant right hip joint effusion on CT. Mild degenerative changes involving the right knee with no significant suprapatellar joint effusion. Relatively mild degenerative changes involving the right ankle. No acute fracture. No subluxation. Normal alignment. No unusual lytic or sclerotic lesions of bone. No significant tibiotalar or posterior subtalar joint effusion. SOFT TISSUES: Incidental finding of a small fat-containing right inguinal hernia. Muscles appear to be grossly normal. No soft tissue swelling or gas. No radiopaque foreign body. No soft tissue masses or fluid collections. Ankle ligaments are not well demonstrated on this study. OTHER FINDINGS: Distal colonic diverticulosis without acute diverticulitis. No free fluid in the pelvis. CT/Extremity Lower without Contra IMPRESSION: 1. Study performed for preoperative planning purposes. 2. At least moderate osteoarthrosis involves the right hip joint. 3. No acute or unexpected findings. Electronically Signed: Laith Almonte MD at 3:53 EDT ,
== END | disposition home or self-care (01) ==
LOC: CT 12:51
PROVIDERS: PCP Internal Medicine; Visit Provider Specialist
DX: M17.31 Unilateral post-traumatic osteoarthritis, right knee (principal)
CPT/HCPCS: 73700

== ENCOUNTER 2022-07-21 05:31 | Inpatient (IN) | payer OTHER, BC, SELFPAY ==
--- NOTE | 2022-07-05 12:45 | HP.PCM_ITS ---
History and Physical History and Physical? Patient Name: Lashay Barron : 1960 From:? MICHELLE PEDERSEN PA-C? DATE OF SURGERY:? 07/21/2022 SCHEDULED PROCEDURE:? Right total knee arthroplasty HISTORY OF PRESENT ILLNESS: Preoperative history and physical exam was performed on July 05, 2022.? This is a 62-year-old female who has had ongoing pain in bilateral knees for over 6 years.? She has had a work injury for both knees in 2017 when she fell landing on the knees.? She underwent a previous left total knee arthroplasty by Dr. Virgil Pringle on November 11, 2021.? She is doing well from that procedure.? She has continued to complain of right knee pain.? Her pain can reach 6/10 with activities.? Pain occasionally wakens her at night.? Her pain has been intermittent, aching, sharp, sore.? Pain is increased with stairs and walking.? She has difficulty and pain getting up from a seated position.? Pain is located over the medial aspect on the right knee.? She has difficulty with activities of daily living including bathing and house work due to the pain.? She has tripped/stumbled secondary to the knee pain.? She feels unsafe arcing extended distances due to the pain.? She has tried nonsteroidal anti-inflammatories with minimal relief.? She has gone through previous physical therapy and home exercises with minimal relief.? After failing conservative measures and discussing treatment options with Dr. Virgil Pringle, the patient does wish to proceed with a right total knee arthroplasty.? She has had a previous right knee arthroscopy for meniscus tear.? She has had past corticosteroid injections without relief.? She has tried bracing without relief.? We are obtaining surgical clearance from the primary care physician Dr. Rodriguez.? Patient has medical history pertinent for anxiety/depression, hypertension and peripheral vascular disease.? She denies past history of DVT or pulmonary embolism.? Currently denies any chest pain, shortness of breath, fevers chills or recent infections. REVIEW OF SYSTEMS: Review Of Systems: Constitutional: Denies anorexia, change in appetite, fever, difficulty sleeping, weight change. Cardiovasular: Reports heart murmur, but denies chest pain, irregular heartbeat and peripheral vascular disease. Respiratory: Reports asthma, but denies cough, pneumonia, sleep apnea, shortness of breath, tuberculosis and wheezing. Gastrointestinal: Denies constipation, diarrhea, heartburn, nausea, rectal itching, bloody stools and vomiting. Genitourinary: Denies incontinence. Musculoskeletal: Reports leg swelling, pain, trouble walking and weakness. Skin: Denies Raynaud's, history of shingles and tattoo. Neurological: Reports numbness/tingling but denies ambulatory dysfunction, dizziness and tremor. Psychiatric: Reports depression, but denies anxiety, insomnia, mental illness and stress. Hematologic/Lymphatic: Denies anemia, bleeding/bruising tendency and past transfusion. Reviewed, no changes. PAST MEDICAL HISTORY: Advance Care Plan: No Advance Directives Effective Date: 10/03/2019 Past Medical History: Medical Problems: Arthritis, Vascular Disease/ Peripheral, Depression, anxiety, High Blood P ressure Accidents: Fall - (12/20/2016) HIT BOTH KNEES ON CONCRETE Other - (11/24/2021) FELL- LT KNEE Surgical Hx: Shoulder Arthroscopy Rt - X2 Gallbladder, Appendectomy, LT Knee Surgeries, RT Knee Surgies Left Total Knee Replacement - (11/11/2021) SAW @ [facility] Anesthesia Complications: None Assistive Devices: Cane Reviewed and updated. SOCIAL HISTORY: Social History: Marital: Single.Occupation: Unemployed.Work Status: Not Working Currently.Hand Dominance: Right-handed. Personal Habits:? Cigarette Use: Currently smokes, Light tobacco smoker (10 or fewer cigarettes/day).Smokeless Tobacco: Never Used Smokeless Tobacco.E- Cigarette Use: Never used.Alcohol: Denies use.Drug Use: Denies Use.Enjoy Exercising: Exercises 1-3 X/Week. Reviewed, no changes. VITALS: Ht: 63 Wt: 237lb Wt k.503 BMI: 42.0 BP: 122/80 Pulse: 89 Resp: 20 T: 97.8 T: 36.6C Pain Level: 4 O2SatR: 95 ALLERGIES: Tetracycline? MEDICATIONS: Lamotrigine 25 mg daily, Vitamin D3 50 mcg (1999 Ut) daily, Amitriptyline HCL 100 mg 1 by mouth every day, Pristiq 100 mg 1 po daily, Hydroxyzine HCL 25 mg take 1 PO every 4 hours prn, Fluoxetine HCL 40 mg Take 1 capsule by mouth once daily., Lisinopril 20 mg take 1 tablet by mouth once daily, Topiramate 25 mg two by mouth at bedtime PRE-OP EXAM:? General appearance:NORMAL? ? ? Other: Eyes: Conjunctivae and lids: NORMAL? Pupils: ERR Ears, Nose, Mouth, and Throat: NORMAL? Other: Inspection of lips, teeth and gums: NORMAL? ?Other: Neck: Examination of neck: no masses noted. Respiratory: Assessment of respiratory effort: NORMAL? ?Other: ?Auscultation of lungs: clear to auscultation no wheezes, rhonchi or rales. Cardiovascular:? Auscultation of heart: regular rate and rhythm, no murmurs, gallops or rubs. PHYSICAL EXAMINATION: On exam of the right knee there is no erythema or signs of infection.? She has moderate effusion.? There is tenderness to palpation along the medial joint line of the right knee.? She has crepitus with range of motion.? Range of motion: 0 extension to 122 flexion.? Stable to anterior/posterior drawer exam with firm endpoint. IMAGING STUDIES: Previous x-rays of the right knee reveal joint space narrowing, subchondral sc lerosis, osteophyte formation consistent with right knee osteoarthritis. IMPRESSION: 1.? Right knee osteoarthritis 2.? Presence of left total knee arthroplasty November 11, 2021 3.? Hypertension 4.? Depression 5.? Anxiety 6.? Peripheral vascular disease? 7.? Morbid obesity with BMI 42.0 PLAN: Dr. Virgil Pringle did discuss and review with the patient all treatment options including surgical versus nonsurgical options.? Patient does wish to proceed with the above-stated procedure.? Potential risks, benefits, and complications of the procedure were discussed in detail including but not limited to , infection, nerve and blood vessel damage, persistent pain, numbness, tingling, paresthesias, blood clot, pulmonary embolism, and requirement for possible further surgery.? The patient expressed full understanding and has no further questions for the doctor.? Patient does agree to proceed with the above-stated procedure and has signed the surgery consent form. This dictation was created using voice recognition software. Phonetic and/or grammatical errors may exist. ___? I have re-examined the patient.? There are no clinical changes since date of exam. ___? See progress notes for changes. ___? Dictated on admission Date: ? ? ?Time: Signature:
[2022-07-09 13:48] LABS: Absolute Lymphocyte Count 2.54 X10^3/uL (0.83-4.51); Absolute Neutrophil Count 5.3 X10^3/uL (2.0-7.7); Basophil# 0.05 X10^3/uL; Basophil% 0.6 % (0-1); Eosinophil# 0.17 X10^3/uL; Hematocrit 42.6 % (37-47); Hemoglobin 13.5 g/dL (12.0-15.0); Lymphocyte # 2.54 X10^3/ul (0.83-4.51); Lymphocyte % 29.3 % (19-41); Mean Corp Hgb Conc 31.7 g/dL (32-36); Mean Corpuscular Hgb 28.7 pg (27.0-32.0); Mean Corpuscular Volume 90.6 fL (81-99); Mean Platelet Vol. 11.8 fl (6.2-12.0); Monocyte# 0.58 X10^3/uL; Monocyte% 6.7 % (0-10); NRBC Flagged by Analyzer 0 % (0-5); Neutrophil # 5.31 X10^3/uL (2.7-7.7); Neutrophil % 61.1 % (47-70); Platelet Count 222 K/mm3 (150-450); RBC Distribution Width CV 14.8 % (11.6-14.6); RBC Distribution Width SD 49.7 fl (35.1-43.9); White Blood Count 8.7 K/mm3 (4.4-11.0)
[2022-07-09 14:00] LABS: Albumin, Serum 3.2 g/dL (3.2-5.0); Anion Gap 5 (5-15); BUN 18 mg/dL (7-18); BUN/Creat Ratio 20.8 RATIO (10-20); Chloride 107 mmol/L (98-107); Creatinine, Serum 0.86 mg/dL (0.55-1.02); EST Glomerular Filtration Rate 71 mL/min (>60); Est Glom Filt Rate - Afr Amer 85 mL/min (>60); Glucose 105 mg/dL (74-106); Potassium 4.4 mmol/L (3.5-5.1); Sodium Level 137 mmol/L (136-145)
[2022-07-09 14:03] LABS: Magnesium 2.2 mg/dL (1.6-2.6)
[2022-07-21] VITALS (18 sets, daily range): BP systolic 86–122; BP diastolic 41–102; PULSE 79–99; RESP 16–20; TEMP 36.6–37.4; O2SAT 92–100; BMI 42.1; BMI 45.7
[2022-07-21] MEDS: Lactated Ringers 1,000 ML 999 ML IV ×3 (06:41→11:00)
[2022-07-21] MEDS: Gabapentin 600 MG Tablet PO (06:42)
[2022-07-21] MEDS: Celecoxib 200 MG Capsule 400 MG PO (06:42)
[2022-07-21] MEDS: Magnesium 1 GM over 15 mins IV (06:42)
[2022-07-21] MEDS: Acetaminophen 500 MG Tablet 1000 MG PO ×3 (06:42→22:56)
--- NOTE | 2022-07-21 06:57 | OP.PCM_ITS ---
Report of Operation Date of Procedure: 07/21/22 Pre-Operative Diagnosis: Right knee primary osteoarthritis Post-Operative Diagnosis: Right knee primary osteoarthritis Surgery/Procedure Performed:: Right minimally invasive robotic total knee replacement Description of Surgical Findings:: Stable knee with good patella tracking Surgeon: Virgil Pringle wrapper sorter: Dominic Salazar Type of Anesthesia: Spinal Anesthesiologist: Bill Pascual Special Medications: 2 g Ancef, 1 g TXA at incision, 1 g TXA closure, 10 mg Decadron, joint cocktail (5 mg Duramorph, 30 mL of 0.5% Ropivicaine, 1000 units of epinephrine, 30 mg of Toradol) Specimen's removed: Bony cuts Estimated Blood Loss (mL): 50 Fluids Replaced: 1500 mL crystalloid Description of Procedure: Implants used: 1. Dwight size 3 triathlon cruciate retaining distal femoral press-fit component 2. Maddison size 3 press-fit tritanium tibial baseplate 3. Maddison X3 9 mm CS polyethylene 4. Dwight X3 32 mm press-fit asymmetric patella Brief history operative indications: 62-year-old F with history of right knee osteoarthritis with radiographic findings with loss of joint space, osteophyte formation and subchondral sclerosis. Failed conservative measures as mentioned in the H&P. Discussion of total knee arthroplasty as well as risk and benefits were discussed the patient including but not limited to blood loss, DVTs, PEs, neurovascular damage, general risk of anesthesia including loss of life, and stiffness or instability were discussed with patient. Patient demonstrated understanding and was able to sign informed consent. Procedure: On the date of procedure patient's right lower extremity was marked in the preoperative area. The patient was then taken back to the operating room where the patient was placed on the table in the supine position. All bony prominences were identified a well-padded. Anesthesia assumed control of the C-spine and airway and remained controlled throughout the remainder of the procedure. A tourniquet was placed on the right upper thigh and the leg was prepped in a sterile fashion. The surgeon then scrubbed at this time .Upon reentering the room right lower extremity was draped in a standard orthopedic fashion. A timeout was then called and everyone agreed upon the side, the site, the procedure to be performed, patient's identity and antibiotics given. Esmarch bandage was used to exsanguinate the extremity and the tourniquet was placed up to 250 mmHg with the knee in flexion. A midline skin incision was made and sharp dissection was taken down through skin subcutaneous tissue and fat. The standard medial parapatellar incision was made and the patella was subluxed laterally. An Appropriate deep MCL release was done and the fat pad was resected. Our attention was then directed to the patella. The patella was everted and a flat resection was made. The knee was then flexed up in 2 femoral pins were placed inside the incision and 2 tibial pins were placed outside the incision in the medial tibia bicortically. Once this was completed the 2 checkpoints in the femur and tibia were placed. Knee was then flexed up and the bony landmarks were registered. Once this was completed knee was taken through range of motion and manually stressed allowing us to a plan for an appropriate tibial cut. The robotic arm was brought into the field sterilely and checkpoint and saw were registered. Based on the patient's deformity the tibial cut was made neutral to the tibial axis. At this time the tensioner was then placed in the joint and ligament tension was checked at 90 degrees and full extension. Based on the patient's ligamentous tension appropriate adjustments were made to the operative plan and ligament releases were done. Once we were happy with our operative plan with balanced flexion and extension gaps our attention was directed to the femur. The robot was brought into the field sterilely and registered. Posterior condylar cuts, anterior chamfer cuts and anterior cuts were appropriately made for a size 3 femur. When these were completed the saws were switched out in the distal femoral and posterior chamfer cuts were made. Protecting the soft tissue throughout this time. A size 3 tibial base plate was selected. the knee was flexed to 90 degrees and the soft tissues and posterior osteophytes were removed from the joint. 40 cc of the periarticular injection was injected into the posterior medial corner of the joint. The appropriate trials were then placed on the femur and tibia. A trial polyethylene was trialed to ensure proper balancing and stability of the knee. The appropriate tibial internal rotation was then marked with a bovie. Our attention was then directed to the patella. The lug holes were drilled and the patella trial was placed. Patellar tracking was checked and deemed appropriate. Once we were happy lug holes were drilled for the femur and trial components were removed. the tibia was subluxed and pinned into place and the keel was punched and drilled appropriately. Final components were verified and opened, and cement was mixed in a vacuum. [employer] Simplex cement was used. The wound was copiously irrigated with normal saline. When the cement was ready the components were impacted into place starting with the tibia, femur and finally the patella. The trial poly component was placed and the knee was placed in full extension. All excess cement was removed in the process. Once the cement had cured the tracking, alignment and balance were verified and a size 9 mm CS polyethylene component was placed. Once the final components were placed a 3-minute dilute Betadine lavage was performed followed by an Irrisept lavage was performed and the wound was copiously irrigated with normal saline solution and the periarticular injection was given. The wound was closed in a layer reynolds fashion using #1 vicryl interrupted sutures for the arthrotomy, 2-0 interrupted Vicryl suture for the subcuticular layer and sulaiman for final skin closure. A sterile compressive dressing was then placed. The patient was then awakened from anesthesia, transferred to the [facility] and transferred to the PACU for recovery. Post op plan DVT ppx: ASA 81mg BID, thigh high compression stockings Follow up: in office in 2 weeks for wound check PT: to start POD #0 at hospital, outpatient PT should be arranged. Due to patient's high risk nature she will be placed on an extended oral antibiotic regimen: Bactrim DS p.o. twice daily for infection prevention My physician retail administrative assistant was a vital part of this case. He was important in appropriate retraction during the case, and protection of soft tissues during bony cuts. His intimate knowledge of the case and my steps aided in safe and expedient completion of the procedure as well as appropriate position of the leg during the case. He was also vital in assisting with closure under my direct supervision. Due to the complexity of this case robotic arm was used to assist in the surgery to improve accuracy and clinical outcomes. Complications No intraoperative complications Admit VTE Documentation VTE Present on Admission: No VTE Mechan Device Prophylaxis: SCD's and Thigh High MUNIR Hose VTE Pharm Prophylaxis ordered?: Yes
[2022-07-21] MEDS: Cefazolin 2 GM in 0.9% Normal Saline 100 ML IV (07:23)
--- NOTE | 2022-07-21 07:30 | KNEE_PTH ---
PATIENT: DENISSE MCMULLEN LOC: MS3 U#:[id number] AGE/SX: 62/F ROOM: OK319 RE07/21/[address]: Dr. Virgil Pringle MD : 1960 BED: 1 DIS: 07/22/2022 SPEC #: [id number] RECD: 07/21/22 14:10 STATUS: OSEI RERashi #: [id number] JESSICA: 07/21/22 07:[address]: Virgil Pringle DEPT: SURGICAL PATHOLOGY RECD BY: Jie Sheikh ENTERED: 07/22/22 10:46 SP TYPE: TOTAL KNEE OTHR DR: MD Dr. Sage Gay MD Tissues: Knee, NOS Procedures: Decalcification bone/plaque Surgery Specimen Level IV HEADER OPERATION: ERAS, total knee replacement robotic arm assist PRE-OP DIAGNOSIS: Right knee osteoarthritis TISSUE SUBMITTED: Bone right knee MICROSCOPIC DIAGNOSIS Bone, right knee, total knee replacement/resection: Pieces of bone with mild degenerative osteoarthritic changes. TAVO:jamil 07/28/2022 MICROSCOPIC DESCRIPTION Slides are reviewed. GROSS DESCRIPTION Received is one container designated bone right. The specimen consists of multiple fragments of goldstein-yellow bone measuring in aggregate 9.0 x 12.0 x 3.0 cm. No soft tissue is identified. A number of bony fragments contain articular surfaces consistent with tibial plateau and femoral condyle and displaying prominent osteophyte formation and bone erosion. Clerical Adjudicator sections are submitted in two cassettes after decalcification. / TAVO:jamil 07/22/2022 TC:5 CPT: 59888, 27516
[2022-07-21 07:35] LABS: Bedside Glucose 108 mg/dL (74-106)
[2022-07-21] MEDS: dexAMETHasone 10 MG/ML Vial IV (07:43)
[2022-07-21] MEDS: Lactated Ringers 1,000 ML 75 ML IV (07:43)
[2022-07-21] MEDS: TXA 1000mg in NS100 100ml (IVPB at Incision) 660 MG IV (07:43)
[2022-07-21] MEDS: TXA 1000mg in NS100 100ml (IVPB at Closure) 660 MG IV (08:21)
[2022-07-21] MEDS: JPS (Morphine 10mg/ml) OPERA.SITE (08:31)
--- NOTE | 2022-07-21 09:40 | RAD_ITS ---
STUDY: X-RAY - RIGHT KNEE REASON FOR EXAM: Female, 62 years old. Postoperative evaluation after total knee arthroplasty. TECHNIQUE: 2 view(s) of the knee. COMPARISON: August 13, 2020. FINDINGS: 3 component total knee arthroplasty in anatomic position. Expected post-operative findings without complications. No other significant abnormality is identified. RAD/Knee 1 or 2 Views IMPRESSION: Total knee arthroplasty in anatomic alignment without complications. Electronically Signed: Herman Stafford, at 9:58 EDT ,
[2022-07-21] MEDS: Lactated Ringers 1,000 ML 125 ML IV ×2 (11:11→12:49)
--- NOTE | 2022-07-21 12:42 | PCM.CONS.GEN ---
Assessment & Plan Assessment/Plan (1) Status post total left knee replacement: PLAN: Plan 1. Perioperative management of right robotic TKR: Patient is admitted after elective right robotic TKR by Dr. Pringle and orthopedic service. Patient on cefazolin perioperative antibiotic, Toradol and other perioperative medications for pain control and anti-inflammatory agents. IV fluid Ringer lactate. VTE prophylaxis as per surgeon's discretion. 2. Hypertension: Patient most BP profiles are systolic 100s therefore dose of lisinopril decreased to 10 mg daily with holding parameter. 3. Systolic murmur, chronic. It seems flume/palpable murmur. Patient advised outpatient 2D echo with PCP to further elucidate nature and characteristic of murmur. 4. Anxiety, depression, chronic pain and chronic smoking: Home medication reconciliation done. 5. Physical debility due to advanced degenerative arthritis: Patient had left knee arthroplasty in the past. PT and OT ordered. VTE prophylaxis per surgeon discretion. HPI Consult Data Date of Consult: 07/21/22 PCP / Referring MD: For perioperative management of right TKR HPI Narrative Reason for Consultation: For perioperative management of right TKR, hypertension HPI Narrative: DENISSE MCMULLEN, is a 62 F who is admitted after elective right minimally invasive robotic TKR for right knee primary osteoarthritis. After surgery patient is on the floor feeling mild cold otherwise no acute symptoms. Denies chest pain shortness of breath, palpitation or fever. Patient has history of hypertension and she attributes mostly to the gain of weight, morbid obesity. She was started on lisinopril by PCP and increased to 20 mg but her usual baseline low less than 110 mmHg. She denies having any symptoms of dizziness or lightheadedness. She denies chronic heart disease/coronary artery disease, heart failure or arrhythmia. She has murmur diagnosed when she was in 40s. Social history: She smokes about 6 cigarettes/day started in her 20s. She is trying to quit. She asked for nicotine patch. Denies chronic regular alcohol use disorder or substance use disorder. [facility] Medical History Ambulates with cane Anxiety Arthritis Chronic pain Depression Heart murmur Hypertension Smoker Wears dentures Home Medications cholecalciferol (vitamin D3) 50 mcg (2,000 unit) tablet (Vitamin D3) 50 mcg PO DAILY SUPPLEMENT 10/29/21 [History Last Taken 07/20/22] desvenlafaxine succinate 100 mg tablet,extended release 24 hr (Pristiq) 100 mg PO DAILY DEPRESSION 10/29/21 [History Last Taken 07/21/22 04:30] fluoxetine 20 mg capsule (Prozac) 40 mg PO DAILY DEPRESSION 10/29/21 [History Last Taken 07/21/22] hydroxyzine HCl 25 mg tablet 25 mg PO Q4H PRN Anxiety 10/29/21 [History Last Taken 07/21/22] amitriptyline 100 mg tablet 100 mg PO QHS SLEEP 07/07/22 [History Last Taken 07/20/22 22:00] lisinopril 20 mg tablet 20 mg PO DAILY BP 07/07/22 [History Last Taken 07/21/22] omega-3 fatty acids 1,000 mg PO BID SUPPLELEMENT 07/07/22 [History Last Taken Unknown] phosphatidylcholine 1,200 mg capsule 1 cap PO DAILY SUPPLEMENT 07/07/22 [History Last Taken Unknown] topiramate 25 mg tablet (Topamax) 75 mg PO DAILY WEIGHT LOSS 07/07/22 [History Last Taken 07/20/22] vit C 250 mg-vit E 90 mg-zinc 40 mg-copper 1 [id number] capsule (PreserVision AREDS-2) 1 tab PO BID SUPPLEMENT 07/07/22 [History Last Taken Unknown] Allergy/AdvReac Type Severity Reaction Status Date / Time bupropion [From Wellbutrin] Allergy Other Verified 07/21/22 06:30 tetracycline Allergy Hives Verified 07/21/22 06:30 Surgical History Hx of knee surgery Hx of total knee arthroplasty Social History Smoking Status: Current some day smoker tobacco type: cigarettes ROS ROS Narrative Constitutional: Mild chronic fatigue due to arthritis. Morbid obesity. HEENT: Reports systems reviewed and no addt'l complaints, except as documented Respiratory/Chest: Denies chest pain, shortness of breath at rest. Gastrointestinal: Denies coffee ground emesis, hematemesis or vomiting Genitourinary: Denies burning urination or new urinary tract symptoms Musculoskeletal: Chronic knee pain and arthritis. Limited range of motion of knees and hip joints. Neurologic: Denies seizure-like activity. No stroke. skin: No ulcer. No rash Endocrinology: Reports systems reviewed and no addt'l complaints, except as documented Hematologic/Lymphatic: Reports systems reviewed and no addt'l complaints, except as documented Rest 14 ROS are negative except as mentioned in HPI Physical Exam Narrative Seen and examined. Physical exam General: Alert, Oriented x3, Cooperative, morbid obesity BMI 45.7 kg/m? HEENT: Atraumatic, PERRLA, EOMI, Normocephalic Oral: Oral mucosa moist. No Gingival or Mucosal Lesions/ Ulcerations Neck: Supple, No JVD, Negative Carotid Bruits Lungs: Air entry diminished in bilateral lung bases. No crepitation/rhonchi Cardiovascular: Regular rate, Regular Rhythm, Normal S1, Normal S2, systolic murmur LLSB. Abdomen: Bowel Sounds Present, Soft, Non Tender, Non-Distended : No renal angle tenderness. No suprapubic tenderness. Extremities: No edema, Capillary Refill Less than 3 Seconds Skin: No rashes, No breakdown Musculoskeletal: Right robotic TKR with ice bag. Dressing intact. Degenerative arthritis in left knee and hip joints. Neurological: Cranial nerves II-XII grossly intact, DTR 2+/4 and Symmetrical, Neuro grossly intact Psych/Mental Status: Normal Affect, Appropriate. Lab / Micro Data Result Diagrams: 07/09/22 13:16 07/09/22 13:16 Labs: Laboratory Results - last 24 hr 07/21/22 06:17: POC Glucose 108 H Radiology Impression Knee X-Ray 07/21/22 09:40 IMPRESSION: Total knee arthroplasty in anatomic alignment without complications. Electronically Signed: Herman Stafford, at 9:58 EDT , Charges/Coding Visit Charges Office Visits / Consults: [id number] IP Consult L3
[2022-07-21] MEDS: Ensure Surgery 237 ML LIQUID PO (17:27)
[2022-07-21] MEDS: Aspirin 81 MG TAB.CHEW PO (17:27)
[2022-07-21] MEDS: Cefazolin 1 GM/50 ML BAG IV ×2 (17:33→23:01)
[2022-07-21] MEDS: oxyCODONE 5 MG Tablet PO (17:42)
[2022-07-21] MEDS: Topiramate 25 MG Tablet 75 MG PO (22:55)
[2022-07-21] MEDS: Senna/Docusate Sodium 1 Tablet 2 TABLET PO (22:56)
[2022-07-21] MEDS: Amitriptyline 100 MG Tablet PO (22:58)
[2022-07-21] MEDS: 0.9% Saline Lock 10 ML Syringe IV (23:58)
[2022-07-22] MEDS: oxyCODONE 5 MG Tablet PO ×3 (00:01→13:16)
[2022-07-22 02:56] VITALS: BP 118/89; PULSE 79; RESP 17; TEMP 36.4; O2SAT 98
[2022-07-22] MEDS: 0.9% Saline Lock 10 ML Syringe IV ×2 (02:57→10:27)
[2022-07-22] MEDS: Ketorolac 15 MG/ML Vial IV ×2 (02:57→10:27)
[2022-07-22] MEDS: hydrOXYzine PAM 25 MG Capsule PO ×3 (03:06→13:16)
[2022-07-22] MEDS: Acetaminophen 500 MG Tablet 1000 MG PO ×2 (05:23→13:18)
[2022-07-22 06:53] LABS: Hematocrit 34.1 % (37-47); Hemoglobin 10.9 g/dL (12.0-15.0); Mean Corpuscular Hgb 29.4 pg (27.0-32.0); Mean Corpuscular Volume 91.9 fL (81-99); Mean Platelet Vol. 11.3 fl (6.2-12.0); Platelet Count 174 K/mm3 (150-450); RBC Distribution Width CV 15.1 % (11.6-14.6); RBC Distribution Width SD 50.7 fl (35.1-43.9); Red Blood Count 3.71 M/mm3 (4.2-5.4)
[2022-07-22 07:34] LABS: Anion Gap 5 (5-15); BUN 26 mg/dL (7-18); BUN/Creat Ratio 29.2 RATIO (10-20); Calcium,Total 8.4 mg/dL (8.5-10.1); Chloride 109 mmol/L (98-107); Creatinine, Serum 0.89 mg/dL (0.55-1.02); EST Glomerular Filtration Rate 68 mL/min (>60); Est Glom Filt Rate - Afr Amer 83 mL/min (>60); Estimated Creatinine Clearance 54.22 ml/min; Glucose 111 mg/dL (74-106); Potassium 3.8 mmol/L (3.5-5.1); Sodium Level 139 mmol/L (136-145)
[2022-07-22] MEDS: FLUoxetine 20 MG Capsule 40 MG PO (07:37)
[2022-07-22] MEDS: Ensure Surgery 237 ML LIQUID PO ×2 (07:37→11:25)
[2022-07-22] MEDS: Senna/Docusate Sodium 1 Tablet 2 TABLET PO (07:37)
[2022-07-22] MEDS: Cholecalciferol (VIT D3) 25 MCG TABLET (1,000 UNITS) 50 MCG PO (07:38)
[2022-07-22] MEDS: Venlafaxine XR 75 MG Capsule PO (07:38)
[2022-07-22] MEDS: Smz/Tmp Ds Tablet 1 TABLET PO (07:38)
[2022-07-22] MEDS: Aspirin 81 MG TAB.CHEW PO (07:38)
[2022-07-22] MEDS: Lisinopril 10 MG Tablet PO (07:38)
[2022-07-22] MEDS: Famotidine 20 MG Tablet PO (07:38)
[2022-07-22 08:30] VITALS: BP 127/73; PULSE 76; RESP 16; TEMP 36.4; O2SAT 97
--- NOTE | 2022-07-22 10:11 | CASEMGMT ---
TONEY HOLMAN Assessment: Face to Face with pt for initial transition planning/care coordination assessment. TONEY HOLMAN introduced self and role at [facility], pt voices understanding and consents to assessment. Pt is A/O x4 and answers all questions appropriately at this time. Pt sitting up in chair in no distress. Care providers, pharmacy, and demographics verified/updated. Admitting Dx: R total knee with violet PCP:Ziggy Specialists:jeancarlos Pringle Preferred Pharmacy: [facility] Retail [facility] Benefit: yes LNOK: Brielle Brina, dtr Living Arrangements: Pt lives with her dtr, son in law and grandchildren in a single story home with 2 steps to enter with a pole for stability. Pt reports she was I in ADL's prior to surgery. States her dtr will assist pt post surgery and do laundry and housekeeping tasks. Pt denies concerns at home. Transportation: Pt drives self and denies concerns with transportation. Pt friend or dtr to transport post surgery until she can drive again. DME/HHC/SNF: Pt has a walk in shower, FWW and cane. Pt typically does not use AD. Pt denies previous HHC or SNF stays. Pt states no concerns with going home at time of dc. She has outpt therapy scheduled for Tuesday at [facility]. Pt having buckling with her knee. Will work with therapy again today to see if this gets better. Pt states no further concerns/needs. CM to follow. Advised pt to ask CM if any further question/concerns/needs arise, voices understanding. Pt Goal: Home with outpt therapy already scheduled Plan: Home with outpt therapy already scheduled pending next session with therapy
--- NOTE | 2022-07-22 10:23 | PN.ORTHO_ITS ---
Subjective Subjective The patient was sitting in bedside chair upon examination. Patient denies any chest pain, shortness of breath, dizziness, lightheadedness, nausea or vomiting, or calf pain. Pain is controlled on medications. Patient was having some postoperative tremors that she describes to me. I did discuss case with the nurse and states that patient was not getting her appropriate dose of anxiety medication. Since getting this dose she has seen improvement. Case was also discussed with medicine in which they will give their recommendations today. Patient has had some buckling of the postoperative right knee. Case was also discussed with physical therapy and they will assess her this afternoon for further eval and recommendations on discharge. Objective Data Objective Data Vital Signs: Vital Signs Temp Pulse Resp BP Pulse Ox O2 Del Method O2 Flow Rate 97.6 F L 76 16 127/73 H 97 Room Air 4 07/22/22 08:30 07/22/22 08:30 07/22/22 08:30 07/22/22 08:30 07/22/22 08:30 07/22/22 08:30 07/21/22 10:45 Oxygen Flow Rate (L/min) 4 Oxygen Delivery Method Room Air Weight: 117.027 kg Body Mass Index (BMI) 45.7 Intake & Output: Intake and Output for Last 24 Hours 07/20/22 07/21/22 07/22/22 23:59 23:59 23:59 Intake Total 6586.58 / 6586.58 200 / 200 Balance 6586.58 / 6586.58 200 / 200 Lab / Micro Data Result Diagrams: 07/22/22 06:24 07/22/22 06:24 Labs: Laboratory Results - last 24 hr 07/22/22 06:24: WBC 12.0 H, RBC 3.71 L, Hgb 10.9 L, Hct 34.1 L, MCV 91.9, MCH 29.4, MCHC 32.0, RDW Std Deviation 50.7 H, RDW Coeff of Niecy 15.1 H, Plt Count 174, MPV 11.3 07/22/22 06:24: Sodium 139, Potassium 3.8, Chloride 109 H, Carbon Dioxide 25.0, Anion Gap 5, BUN 26 H, Creatinine 0.89, Estim Creat Clear Calc 54.22, Est GFR (MDRD) Af Amer 83, Est GFR (MDRD) Non-Af 68, BUN/Creatinine Ratio 29.2 H, Glucose 111 H, Calcium 8.4 L Micro: Microbiology 07/09/22 13:16 Swab (Method) Nasal Screen MRSA/MSSA - Final Radiography Diagnostic Testing: Radiology Impression Knee X-Ray 07/21/22 09:40 IMPRESSION: Total knee arthroplasty in anatomic alignment without complications. Electronically Signed: Herman Stafford, at 9:58 EDT Reading Location ID and State: [facility] / [place] , Service support , Physical Exam Narrative Vital signs stable and afebrile. SCDs and MUNIR hose are in place bilaterally Patient is able to plantarflex and dorsiflex actively. Sensation is intact to light touch to saphenous, sural, superficial and deep peroneal, and tibial distribution. Dressing is clean dry and intact. Negative Homans bilaterally, negative signs and symptoms of DVT. Const alert, oriented x3 and no apparent distress Assessment & Plan Assessment/Plan (1) Status post total right knee replacement: PLAN: 1. S/P right total knee arthroplasty POD #1 2. Continue Pain Medications: Tylenol, meloxicam, oxycodone. Do not take any other nonsteroidal anti-inflammatories while using meloxicam/Mobic. 3. DVT Prophylaxis: Take 81 mg aspirin twice daily for 4 weeks postoperatively for DVT prophylaxis. Patient denies past history of DVT or pulmonary embolism 4. PT/OT: Weightbearing as tolerated with walker. Patient has had some buckling episodes with her right knee. Case was discussed with physical therapy and they will assess her for afternoon session for recommendations on discharge. She is currently scheduled for outpatient physical therapy upon discharge. 5. H & H: 10.9/34.1, asymptomatic. Postoperative anemia secondary to acute blood loss from surgery without any intra operative complications. 6. Reactive leukocytosis: Currently 12.0, afebrile. Patient did receive Decadron intraoperatively 7. Continue postoperative medical management per medicine: I did discuss case with medicine with regards to her tremors. Nursing states when she is had her appropriate dosage for her anxiety medications this has improved. Medicine will give recommendations upon discharge today. 8. Continue antibiotics for 2 weeks postoperatively: Patient will continue with Bactrim postoperatively for 2 weeks due to increased risk for infection secondary to elevated BMI greater than 40. 9. Encouraged Incentive Spirometry 10. Disposition: Plan will be for possible discharge home this afternoon. I am waiting on recommendations from physical therapy as well as clearance from medicine. Patient will be prepped and prepared for possible discharge. She would like her medications E scribed to [facility]. She currently has outpatient physical therapy established. She will follow-up upon discharge per postoperative instructions. She will contact her office if discharged today with any concerns or questions. Case was also discussed with Virgil Pringle. I have reviewed the [place] Automated Rx Reporting System (OARRS) report for this patient for refill pattern and other prescriber involvement as part of the appropriate surveillance for the provision of acute and chronic controlled medications. The report was requested and reviewed on the date of this entry and was considered in the prescribing process. This dictation was created using voice recognition software. Phonetic and/or grammatical errors may exist.
--- NOTE | 2022-07-22 10:29 | DCINST_ITS ---
Discharge Instructions Diet Discharge Diet: No restrictions Activity Discharge Activity: May Not Drive (No driving for 6 weeks postoperatively. Must also be able to walk 100 feet without the use of cane or walker and no longer on narcotics.) May shower in (days): 1 (Please turn dressing away from water. Okay to get wet as long as dressing is intact to skin.) Ice area for (Minutes): 20 (Every 1-2 hours while awake. Please place barrier between the skin and ice pack.) Weight Bearing Status: Weight bearing as tolerated Keep extremity elevated above heart level: Operative Extremity Dressing / Incision Call your doctor if your incision/area has: Continuous Slow Oozing, Sudden Increased Bleeding, Increased Pain/ Swelling, Increased Redness and Foul Smelling Discharge Call your doctor if you observe: Fever of 101 or Higher, Coldness, Increased Pain, Numbness or Tingling, Change in Color, Shortness of breath, Chest pain, Calf discomfort and Uncontrolled pain Remove Dressing in: 4 days (Okay to remove dressing on July 26, 2022) Additional Dressing/Incision Instructions:: Follow [facility] Post-op Instructions. Once postoperative dressing has been removed only use gentle soap and water over the incision. Do not use any ointments, Neosporin, salves, alcohol pads over the incision for 6 weeks postoperatively. Do not submerge underwater for 6 weeks postoperatively. Continue with MUNIR hose/elastic stockings for 2 weeks postoperatively. May remove at nighttime but needs to be placed back on the leg during the day. Do NOT use alcohol with narcotic pain medication. Do NOT make important decisions while taking narcotic medication. If you have problems with taking your medication (rash, itching, nausea, etc.) call the office at once. Follow Up Care Test Results: Test results from this visit will be discussed in further detail at your follow- up appointment, if applicable. Discharge Plan Admission Admit Date/Time: 07/21/22 05:31 Attending Provider: Virgil Pringle Primary Care Provider: Sage Trinh Consulting Providers: Barrett Mccann Discharge Orders/Prescriptions Prescriptions: New acetaminophen 500 mg capsule 1,000 mg PO TID 14 Days Qty: 84 0RF Rx Instructions: Do not take more than 3000 mg Tylenol in a 24-hour period. aspirin 81 mg tablet,delayed release (DR/EC) 81 mg PO BIDCM 30 Days Qty: 60 0RF Rx Instructions: Take 81 mg aspirin twice daily for 4 weeks postoperatively for DVT prophylaxis. famotidine 20 mg Tablet 20 mg PO DAILY 30 Days Qty: 30 0RF meloxicam 7.5 mg Tablet 7.5 mg PO BID 30 Days Qty: 60 0RF Rx Instructions: Do not take any other nonsteroidal anti-inflammatories while using meloxicam/Mobic. oxycodone 5 mg Tablet 5 - 10 mg PO Q4H PRN PRN (Reason: Pain Score 4-10) 5 Days Qty: 60 0RF Senna Plus 8.6-50 mg capsule 2 tab-cap PO BID 3 Days Qty: 12 0RF Rx Instructions: Take until first bowel movement, then as needed sulfamethoxazole-trimethoprim 800-160 mg Tablet 1 tab PO BIDCM 14 Days Qty: 28 0RF Rx Instructions: Take for 2 weeks postoperatively Continued hydroxyzine HCl 25 mg tablet 25 mg PO Q4H PRN (Reason: Anxiety) Label Comments: TAKE 1 TABLET BY MOUTH EVERY 4 HOURS NEEDED fluoxetine [Prozac] 20 mg Capsule 40 mg PO DAILY desvenlafaxine succinate [Pristiq] 100 mg Tablet Extended Release 24 Hr 100 mg PO DAILY cholecalciferol (vitamin D3) [Vitamin D3] 50 mcg (2,000 unit) Tablet 50 mcg PO DAILY lisinopril 20 mg Tablet 20 mg PO DAILY topiramate [Topamax] 25 mg Tablet 75 mg PO DAILY phosphatidylcholine 1,200 mg Capsule 1 cap PO DAILY amitriptyline 100 mg tablet 100 mg PO QHS Label Comments: TAKE 1 TABLET BY MOUTH AT BEDTIME omega-3 fatty acids Capsule 1,000 mg PO BID PreserVision AREDS-2 250-90-40-1 mg Capsule 1 tab PO BID Referrals / Follow Up: Romi Rodriguez MD [Med Staff - [employer]] - Disposition Disposition (needs filled in before D/C Order can be placed): Home, Self Care
[2022-07-22 11:17] VITALS: BP 134/80; PULSE 79; RESP 16; TEMP 36.1; O2SAT 100
--- NOTE | 2022-07-22 13:52 | PN.HOSP_ITS ---
Reason for Visit Reason for Visit: Diagnoses Encounter for other preprocedural examination (07/21/22) Presence of right artificial knee joint (07/21/22) Presence of left artificial knee joint (07/21/22) Follows up tremors and anxiety along with hypertension. Objective Data Objective Data Vital Signs: Vital Signs Temp Pulse Resp BP Pulse Ox O2 Del Method O2 Flow Rate 97 F L 79 16 134/80 H 100 Room Air 4 07/22/22 11:17 07/22/22 11:17 07/22/22 11:17 07/22/22 11:17 07/22/22 11:17 07/22/22 11:17 07/21/22 10:45 Oxygen Flow Rate (L/min) 4 Oxygen Delivery Method Room Air Weight: 258 lb Body Mass Index (BMI) 45.7 Intake & Output: Intake and Output for Last 24 Hours 07/20/22 07/21/22 07/22/22 23:59 23:59 23:59 Intake Total 6586.58 / 6586.58 650 / 650 Balance 6586.58 / 6586.58 650 / 650 Lab / Micro Data Result Diagrams: 07/22/22 06:24 07/22/22 06:24 Labs: Laboratory Results - last 24 hr 07/22/22 06:24: WBC 12.0 H, RBC 3.71 L, Hgb 10.9 L, Hct 34.1 L, MCV 91.9, MCH 29.4, MCHC 32.0, RDW Std Deviation 50.7 H, RDW Coeff of Niecy 15.1 H, Plt Count 174, MPV 11.3 07/22/22 06:24: Sodium 139, Potassium 3.8, Chloride 109 H, Carbon Dioxide 25.0, Anion Gap 5, BUN 26 H, Creatinine 0.89, Estim Creat Clear Calc 54.22, Est GFR (MDRD) Af Amer 83, Est GFR (MDRD) Non-Af 68, BUN/Creatinine Ratio 29.2 H, Glucose 111 H, Calcium 8.4 L Micro: Microbiology 07/09/22 13:16 Swab (Method) Nasal Screen MRSA/MSSA - Final Physical Exam Narrative Patient and generalized tremors all over her body other than no acute symptoms. She had spontaneous urination. She had physical therapy in the morning today. Seen and examined. Physical exam General: Alert, Oriented x3, Cooperative, morbid obesity BMI 45.7 kg/m? HEENT: Atraumatic, PERRLA, EOMI, Normocephalic Oral: Oral mucosa moist. No Gingival or Mucosal Lesions/ Ulcerations Neck: Supple, No JVD, Negative Carotid Bruits Lungs: Air entry diminished in bilateral lung bases. No crepitation/rhonchi Cardiovascular: Regular rate, Regular Rhythm, Normal S1, Normal S2, systolic murmur LLSB. Abdomen: Bowel Sounds Present, Soft, Non Tender, Non-Distended : No renal angle tenderness. No suprapubic tenderness. Extremities: No edema, Capillary Refill Less than 3 Seconds Skin: No rashes, No breakdown Musculoskeletal: Right robotic TKR with ice bag. Dressing intact. Degenerative arthritis in left knee and hip joints. Neurological: Cranial nerves II-XII grossly intact, DTR 2+/4 and Symmetrical, Neuro grossly intact Psych/Mental Status: Mild anxiety. On hydroxyzine as needed at home. Assessment & Plan Assessment/Plan (1) Status post total left knee replacement: PLAN: Plan 1. Perioperative management of right robotic TKR: Patient is admitted after elective right robotic TKR by Dr. Pringle and orthopedic service. Patient on ce fazolin perioperative antibiotic, Toradol and other perioperative medications for pain control and anti-inflammatory agents. IV fluid Ringer lactate. VTE prophylaxis as per surgeon's discretion. 07/22: Patient had hydroxyzine for anxiety. Advised 25 mg hydroxyzine every 6-8 hourly as needed as needed for anxiety. Patient stood and walked under supervision of physical therapist 2. Hypertension: Patient most BP profiles are systolic 100s therefore dose of lisinopril decreased to 10 mg daily with holding parameter. 07/22: BP 107/41-1 30/80. I will keep lisinopril to 10 mg daily and discussed with the orthopedic PA. 3. Systolic murmur, chronic. It seems flume/palpable murmur. Patient advised outpatient 2D echo with PCP to further elucidate nature and characteristic of murmur. 4. Anxiety, depression, chronic pain and chronic smoking: Home medication reconciliation done. 5. Physical debility due to advanced degenerative arthritis: Patient had left knee arthroplasty in the past. PT and OT ordered. VTE prophylaxis per surgeon discretion. Patient is medically stable for discharge. Charges/Coding Visit Charges Inpatient E&M: 45840 Subs Hosp L2
== END 2022-07-22 15:42 | disposition home or self-care (01) | DRG 470 ==
LOC: ACINP 12:06 → MS3 12:07
PROVIDERS: Anesthesiology; Admitting Provider Specialist; PCP Internal Medicine; Referring Provider Specialist; Visit Provider Specialist
PROC: 0SRC0JZ Replacement of Right Knee Joint with Synthetic Substitute, Open Approach (ICD-10-PCS; CPT 27447; principal; 2022-07-21 07:00)
DX: M17.11 Unilateral primary osteoarthritis, right knee (principal); Z68.42 Body mass index [BMI] 45.0-49.9, adult; E66.01 Morbid (severe) obesity due to excess calories; I73.9 Peripheral vascular disease, unspecified; F41.9 Anxiety disorder, unspecified; I10 Essential (primary) hypertension; F17.210 Nicotine dependence, cigarettes, uncomplicated; G89.29 Other chronic pain; F32.A Depression, unspecified; R01.1 Cardiac murmur, unspecified; Z96.652 Presence of left artificial knee joint; Z79.899 Other long term (current) drug therapy
CPT/HCPCS: 36415; 73560; 80048; 82040; 82962; 83735; 85025; 85027; 87081; 88305; 88311; 94668; 97110; 97116; 97162; 97166; 97530; 97535; 97802; 99252; C1776; J7120; A4216; G0463; J3475

== ENCOUNTER 2022-07-24 21:28 | Emergency (ER) | payer OTHER, SELFPAY ==
[2022-07-24 21:29] VITALS: BP 136/58; PULSE 90; RESP 16; TEMP 38.2; O2SAT 100
[2022-07-24] MEDS: Acetaminophen 500 MG Tablet 1000 MG PO (22:03)
--- NOTE | 2022-07-24 22:25 | EKG12_ITS ---
Test Reason : DYSRHYTHMIA Blood Pressure : / mmHG Vent. Rate : 094 BPM Atrial Rate : 094 BPM P-R Int : 144 ms QRS Dur : 128 ms QT Int : 378 ms P-R-T Axes : 064 003 033 degrees QTc Int : 472 ms Normal sinus rhythm Right bundle branch block Abnormal ECG When compared with ECG of 03-NOV-2021 13:52, QRS axis Shifted right Confirmed by GRAZYNA PEACE ([id number]), manager editorial MIKAEL BHARDWAJ ([id number]) on 07/28/2022 1:39:36 PM Referred By: JULIA Confirmed By:GRAZYNA PEACE
[2022-07-24 22:36] LABS: Mucous, Urine 0 SEEN /hpf (<or=2+); Red Blood Cells-Urine 0 SEEN /hpf (0-5); Squamous Epithelial Cells - UA 0 SEEN /hpf (5-10)
--- NOTE | 2022-07-24 22:38 | RAD_ITS ---
STUDY: X-RAY CHEST REASON FOR EXAM: Female, 62 years old. fever TECHNIQUE: Single AP portable view of the chest. COMPARISON: None. FINDINGS: The lungs are clear and expanded. There is no demonstrated pleural abnormality. Normal size heart. Normal mediastinum and saad. Normal visualized pulmonary arteries. Normal visualized aortic arch and descending thoracic aorta. Normal visualized thoracic spine. Normal visualized ribs, clavicles, and shoulders. There is no demonstrated abnormality of the visualized soft tissue structures of the upper abdomen. RAD/Chest 1 View (Portable) IMPRESSION: Normal x-ray examination of the chest. Electronically Signed: Jesus Bang MD at 22:50 EDT ,
[2022-07-24 22:39] LABS: Color, Urine Yellow (Yellow); Glucose, Dipstick Normal (Normal); Ketone-Dipstick Negative (Negative); Leukocyte Esterase-Dipstick 25 /ul (Negative); Nitrite-Dipstick Negative (Negative); Occult Blood-Urine Negative /ul (Negative); Protein-Dipstick 30 mg/dl (Negative); Urine Bilirubin Dipstick Negative (Negative); Urine Clarity Clear (Clear); Urine Urobilinogen 12 mg/dl (Normal)
[2022-07-24 22:50] LABS: White Blood Cells 5-10 SEEN /hpf (0-5)
[2022-07-24 22:51] LABS: Bacteria RARE /hpf (None Seen)
[2022-07-24 22:52] VITALS: BP 125/77; PULSE 96; RESP 16
[2022-07-24 22:56] VITALS: BP 125/77; PULSE 91; RESP 16; TEMP 37.5; O2SAT 98
--- NOTE | 2022-07-24 23:11 | EDS_ITS ---
HPI History of Present Illness Chief Complaint: Fever Informant: patient Narrative Narrative: Patient is a 62-year-old female that is 3 days postop right total knee arthroplasty. This performed by Dr. Pringle. She started to feel a little sick last night. Patient she has been having some nausea. I throughout the day she had a chills and her daughter checked her temperature is 100.3 at home. Here it was 100.7. Patient is also been more hoarse today and had a cough. She denies feeling short of breath. She notes that she was not hoarse immediately after the surgery. She had increased redness to her leg. Denies any urinary symptoms. Has had which she feels is a normal amount of postoperative pain. She been taking a gram of Tylenol every 8 hours as well as oxycodone every 4 hours as needed. Patient is also on empiric Bactrim postoperatively. [facility] Medical History Ambulates with cane Anxiety Arthritis Chronic pain Depression Heart murmur Hypertension Smoker Wears dentures Home Medications cholecalciferol (vitamin D3) 50 mcg (2,000 unit) tablet (Vitamin D3) 50 mcg PO DAILY SUPPLEMENT 10/29/21 [History Last Taken 07/20/22] desvenlafaxine succinate 100 mg tablet,extended release 24 hr (Pristiq) 100 mg PO DAILY DEPRESSION 10/29/21 [History Last Taken 07/21/22 04:30] fluoxetine 20 mg capsule (Prozac) 40 mg PO DAILY DEPRESSION 10/29/21 [History Last Taken 07/21/22] hydroxyzine HCl 25 mg tablet 25 mg PO Q4H PRN Anxiety 10/29/21 [History Last Taken 07/21/22] amitriptyline 100 mg tablet 100 mg PO QHS SLEEP 07/07/22 [History Last Taken 07/20/22 22:00] lisinopril 20 mg tablet 20 mg PO DAILY BP 07/07/22 [History Last Taken 07/21/22] omega-3 fatty acids 1,000 mg PO BID SUPPLELEMENT 07/07/22 [History Last Taken Unknown] phosphatidylcholine 1,200 mg capsule 1 cap PO DAILY SUPPLEMENT 07/07/22 [History Last Taken Unknown] topiramate 25 mg tablet (Topamax) 75 mg PO DAILY WEIGHT LOSS 07/07/22 [History Last Taken 07/20/22] vit C 250 mg-vit E 90 mg-zinc 40 mg-copper 1 [id number] capsule (PreserVision AREDS-2) 1 tab PO BID SUPPLEMENT 07/07/22 [History Last Taken Unknown] acetaminophen 500 mg capsule 1,000 mg PO TID pain 14 days #84 caps 07/22/22 [Rx Last Taken Unknown] aspirin 81 mg tablet,delayed release 81 mg PO BIDCM 30 days #60 tabs 07/22/22 [Rx Last Taken Unknown] famotidine 20 mg tablet 20 mg PO DAILY 30 days #30 tabs 07/22/22 [Rx Last Taken Unknown] meloxicam 7.5 mg tablet 7.5 mg PO BID 30 days #60 tabs 07/22/22 [Rx Last Taken Unknown] oxycodone 5 mg tablet 5 - 10 mg PO Q4H PRN PRN Pain Score 4-10 5 days #60 tabs 07/22/22 [Rx Last Taken Unknown] sennosides 8.6 mg-docusate sodium 50 mg capsule (Senna Plus) 2 tab-cap PO BID 3 days #12 caps 07/22/22 [Rx Last Taken Unknown] sulfamethoxazole 800 mg-trimethoprim 160 mg tablet 1 tab PO BIDCM 14 days #28 tabs 07/22/22 [Rx Last Taken Unknown] Allergy/AdvReac Type Severity Reaction Status Date / Time bupropion [From Wellbutrin] Allergy Other Verified 07/24/22 21:32 tetracycline Allergy Hives Verified 07/24/22 21:32 Surgical History Hx of knee surgery Hx of total knee arthroplasty Social History Smoking Status: Current some day smoker tobacco type: cigarettes ROS ROS ED Constitutional Constitutional ED: Reports chills and fever(s) Eyes Eyes: Denies change in vision ENT ENT ED: Reports sore throat Cardiovascular Cardiovascular: Denies chest pain or palpitations Respiratory/Chest Respiratory/Chest: Reports cough; Denies dyspnea Gastrointestinal Gastrointestinal: Reports nausea; Denies abdominal pain or vomiting Musculoskeletal Musculoskeletal: Reports other Details: right knee pain- post op Integumentary Reports rash and other Details: redness to RLE, surgical site on right knee Neurologic Neurologic: Denies headache(s), paresthesias or weakness Psychiatric Psychiatric: Denies anxiety Hematologic/Lymphatic Hematologic/Lymphatic: Denies easy bleeding or easy bruising EXAM Physical Exam Const Vital Signs: 07/24/22 21:29 07/24/22 22:52 07/24/22 22:56 Temperature 100.7 F H 99.5 F H Temperature Source Oral Temporal Pulse Rate 90 96 91 Respiratory Rate 16 16 16 Blood Pressure 136/58 H 125/77 H 125/77 H Blood Pressure Mean 84 93 93 Pulse Ox 100 98 Oxygen Delivery Method Room Air Room Air Room Air 07/24/22 22:57 07/24/22 23:19 07/24/22 23:36 Temperature 97.8 F 100.7 F H Temperature Source Oral Temporal Pulse Rate 91 89 Respiratory Rate 15 15 Blood Pressure 95/78 112/54 L Blood Pressure Mean 83 73 Pulse Ox 98 95 Oxygen Delivery Method Room Air Room Air Room Air 07/25/22 00:25 07/25/22 02:00 07/25/22 03:00 Temperature 99.8 F H 98.1 F 99.2 F H Temperature Source Temporal Oral Temporal Pulse Rate 88 68 68 Respiratory Rate 16 16 16 Blood Pressure 104/59 L 111/69 110/60 Blood Pressure Mean 74 83 76 Pulse Ox 98 98 98 Oxygen Delivery Method Room Air Room Air Room Air 07/25/22 04:00 07/25/22 04:27 Temperature 98.1 F 99.4 F H Temperature Source Oral Temporal Pulse Rate 87 91 Respiratory Rate 16 16 Blood Pressure 112/56 L 133/86 H Blood Pressure Mean 74 101 Pulse Ox 98 100 Oxygen Delivery Method Room Air Room Air Positive well nourished, well developed and obese General Appearance ED: well developed and NAD Nutritional Appearance: obese HEENT Negative for trauma Eyes PERRL and EOMs intact bilaterally Neck supple Neck Narrative: normal ROM Chest Wall inspection of chest normal and palpation of chest normal Resp normal respiratory effort and clear to auscultation bilaterally Cardio regular rate, regular rhythm and no murmurs GI normal to inspection, nondistended, normoactive bowel sounds and non-tender Extremity Extremity Narrative: Asymmetric edema of the right lower extremity which would be expected given her postoperative status. No short arc range of motion of the knee. Neuro oriented x3 Sensorium / Orientation: alert Motor Exam: Negative for general weakness Psych mental status grossly normal Skin Skin Narrative: Warmth and erythema of the right lower extremity. Extends up to the hip. Most pronounced in the calf region as well as the medial lateral aspects of the leg and not necessarily anterior/posterior. No drainage appreciated. It does not seem to come from the knee incision site. Dressing on the knee is dry. There is a small Tegaderm dressing over the right anterior ghotra which does have old appearing blood in it. MDM MDM MDM Narrative Medical decision making narrative: Patient is a 62-year-old female who is 4 days postop from right total knee presenting with fever at home. She also has developed cough and sore throat. She does have swelling, warmth and mild erythema to her right lower extremity diffusely however it is not clear if this is cellulitic changes or just postoperative changes. She is not hypoxic. She is given Tylenol and then her pain medicine (oxycodone) in the emergency room. A septic work-up is performed which is largely normal. White blood cell count is normal at 10.9. She has a mild anemia with a hemoglobin of 10.8 but this is normal given her postoperative status. No signs of endorgan damage. Kidney function is normal. She does have elevated CRP and ESR however this is expected given her recent major surgery. Her lactate is normal at 0.9. COVID and flu are negative. Chest x-ray does not show any acute process. Venous duplex is ordered given the postop fever and swelling of her leg however we do not have ultrasound available at this time. Blood cultures are pending. I do not suspect joint infection she does not have short arc range of motion pain. The redness does not seem to be coming from the surgical site themselves. Case is discussed with Ortho on-call, Dr. Rock, who states that you can have postoperative fevers that are benign at this point. In addition patient is already on Bactrim empirically. He feels that patient likely can be discharged home from an orthopedic standpoint. Given that I have no other source of infection I did discuss with her admission while her cultures result versus discharge home. Patient states he would prefer to go home. Is given strict return precautions. Counseled that if her cultures come back positive we will contact her for returning to the emergency room. Outpatient venous duplex ult rasound is ordered. Patient and daughter are agreeable with this plan of care. Discharged home in stable condition. History & Record Review Additional record(s) reviewed:: Prior inpatient record Lab Data Labs: Laboratory Results - last 24 hr 07/24/22 07/24/22 07/24/22 22:28 23:10 23:10 WBC 10.9 RBC 3.72 L Hgb 10.8 L Hct 33.2 L MCV 89.2 MCH 29.0 MCHC 32.5 RDW Std Deviation 49.6 H RDW Coeff of Niecy 15.1 H Plt Count 184 MPV 11.4 Immature Gran % (Auto) 0.600 Neut % (Auto) 85.1 H Lymph % (Auto) 8.3 L Glades % (Auto) 4.6 Eos % (Auto) 1.0 Baso % (Auto) 0.4 Absolute Neuts (auto) 9.3 H Absolute Lymphs (auto) 0.90 Nucleated RBC % 0 ESR 60 H PT 13.5 INR 1.1 APTT 37.8 H Sodium Potassium Chloride Carbon Dioxide Anion Gap BUN Creatinine Estim Creat Clear Calc Est GFR (MDRD) Af Amer Est GFR (MDRD) Non-Af BUN/Creatinine Ratio Glucose Lactic Acid Calcium Total Bilirubin AST ALT Alkaline Phosphatase C-React Prot Ext Range Total Protein Albumin Globulin Albumin/Globulin Ratio Urine Color Yellow Urine Clarity Clear Urine pH 8.0 Ur Specific [place] 1.010 Urine Protein 30 H Urine Glucose (UA) Normal Urine Ketones Negative Urine Occult Blood Negative Urine Nitrite Negative Urine Bilirubin Negative Urine Urobilinogen 12 H Ur Leukocyte Esterase 25 H Urine RBC 0 SEEN Urine WBC 5-10 SEEN Ur Squamous Epith Cells 0 SEEN Urine Bacteria RARE Urine Mucus 0 SEEN 07/24/22 07/24/22 23:10 23:10 WBC RBC Hgb Hct MCV MCH MCHC RDW Std Deviation RDW Coeff of Niecy Plt Count MPV Immature Gran % (Auto) Neut % (Auto) Lymph % (Auto) Glades % (Auto) Eos % (Auto) Baso % (Auto) Absolute Neuts (auto) Absolute Lymphs (auto) Nucleated RBC % ESR PT INR APTT Sodium 132 L Potassium 4.3 Chloride 104 Carbon Dioxide 23.0 Anion Gap 5 BUN 21 H Creatinine 0.91 Estim Creat Clear Calc 53.02 Est GFR (MDRD) Af Amer 80 Est GFR (MDRD) Non-Af 66 BUN/Creatinine Ratio 23.0 H Glucose 108 H Lactic Acid 0.9 Calcium 8.4 L Total Bilirubin 0.40 AST 24 ALT 28 Alkaline Phosphatase 57 C-React Prot Ext Range 138.00 H Total Protein 6.3 L Albumin 2.6 L Globulin 3.7 Albumin/Globulin Ratio 0.7 L Urine Color Urine Clarity Urine pH Ur Specific [place] Urine Protein Urine Glucose (UA) Urine Ketones Urine Occult Blood Urine Nitrite Urine Bilirubin Urine Urobilinogen Ur Leukocyte Esterase Urine RBC Urine WBC Ur Squamous Epith Cells Urine Bacteria Urine Mucus Radiography Diagnostic Testing: Clinical Impression(s) from Imaging Studies Chest X-Ray 07/24/22 22:38 IMPRESSION: Normal x-ray examination of the chest. Electronically Signed: Jesus Bang MD at 22:50 EDT , Rhythm Strip Rhythm Strip: Sinus Rhythm Rate: 94 Ectopy: None EKG Initial EKG: Attestation: I personally reviewed and interpreted this EKG as follows: Interpretation: Sinus Rhythm Comments: Normal sinus rhythm rate of 94 bpm Right bundle branch block Nonspecific T wave inversions in V1 through V3 Management Discussion w/another healthcare provider: [employer] (Orthopedics, Dr. Rock) Discharge Plan Triage Chief Complaint: Fever Other Complaint: Cellulitis ED Provider: Joya Jacques Dx/Rx/DC Orders Clinical Impression: Fever postop, Cough Instructions: ED FUO Adult Prescriptions: No Action hydroxyzine HCl 25 mg tablet 25 mg PO Q4H PRN (Reason: Anxiety) Label Comments: TAKE 1 TABLET BY MOUTH EVERY 4 HOURS NEEDED fluoxetine [Prozac] 20 mg Capsule 40 mg PO DAILY desvenlafaxine succinate [Pristiq] 100 mg Tablet Extended Release 24 Hr 100 mg PO DAILY cholecalciferol (vitamin D3) [Vitamin D3] 50 mcg (2,000 unit) Tablet 50 mcg PO DAILY lisinopril 20 mg Tablet 20 mg PO DAILY topiramate [Topamax] 25 mg Tablet 75 mg PO DAILY phosphatidylcholine 1,200 mg Capsule 1 cap PO DAILY amitriptyline 100 mg tablet 100 mg PO QHS Label Comments: TAKE 1 TABLET BY MOUTH AT BEDTIME omega-3 fatty acids Capsule 1,000 mg PO BID PreserVision AREDS-2 250-90-40-1 mg Capsule 1 tab PO BID acetaminophen 500 mg capsule 1,000 mg PO TID 14 Days Qty: 84 0RF Rx Instructions: Do not take more than 3000 mg Tylenol in a 24-hour period. aspirin 81 mg tablet,delayed release (DR/EC) 81 mg PO BIDCM 30 Days Qty: 60 0RF Rx Instructions: Take 81 mg aspirin twice daily for 4 weeks postoperatively for DVT prophylaxis. famotidine 20 mg Tablet 20 mg PO DAILY 30 Days Qty: 30 0RF meloxicam 7.5 mg Tablet 7.5 mg PO BID 30 Days Qty: 60 0RF Rx Instructions: Do not take any other nonsteroidal anti-inflammatories while using meloxi cam/Mobic. oxycodone 5 mg Tablet 5 - 10 mg PO Q4H PRN PRN (Reason: Pain Score 4-10) 5 Days Qty: 60 0RF Senna Plus 8.6-50 mg capsule 2 tab-cap PO BID 3 Days Qty: 12 0RF Rx Instructions: Take until first bowel movement, then as needed sulfamethoxazole-trimethoprim 800-160 mg Tablet 1 tab PO BIDCM 14 Days Qty: 28 0RF Rx Instructions: Take for 2 weeks postoperatively Other Ambulatory Orders: Venous Duplex US, Unilateral (Stat) Facility: [facility] - Location: [facility] Ordered By: Dr. Joya Jacques Primary Care Provider: Sage Trinh Referrals: Virgil Pringle MD [Med Staff - Active Staff] - As soon as possible Sage Trinh MD [Primary Care Provider] - Activity Restrictions/Additional Instructions: The exact cause of your fever today is not clear. It could be inflammatory reactions associate with recent surgery. There is not appear to be an obvious surgical infection/cellulitis. It is possible you could have a viral syndrome that is causing given your due sore throat and cough. Continue to take the medications prescribed including the antibiotics. Please call your surgeon tomorrow for further recommendations. We did obtain blood cultures which should result back in the next 48 hours. If there is anything that comes back positive you will be contacted. If you develop worsening symptoms or further concerns please have a low threshold to return to the emergency room. I do recommend that you follow-up for an ultrasound of your leg to make sure there is no blood clot. This has been ordered. Disposition Disposition: Home, Self Care Discharge Date/Time: 07/25/22 05:00
[2022-07-24 23:18] VITALS: BMI 45.1
[2022-07-24 23:19] VITALS: BP 95/78; PULSE 91; RESP 15; TEMP 36.6; O2SAT 98
[2022-07-24 23:22] LABS: Absolute Neutrophil Count 9.3 X10^3/uL (2.0-7.7); Basophil# 0.04 X10^3/uL; Basophil% 0.4 % (0-1); Eosinophil# 0.11 X10^3/uL; Hematocrit 33.2 % (37-47); Hemoglobin 10.8 g/dL (12.0-15.0); Lymphocyte % 8.3 % (19-41); Mean Corp Hgb Conc 32.5 g/dL (32-36); Mean Corpuscular Volume 89.2 fL (81-99); Mean Platelet Vol. 11.4 fl (6.2-12.0); Monocyte% 4.6 % (0-10); NRBC Flagged by Analyzer 0 % (0-5); Neutrophil # 9.29 X10^3/uL (2.7-7.7); Neutrophil % 85.1 % (47-70); Platelet Count 184 K/mm3 (150-450); RBC Distribution Width CV 15.1 % (11.6-14.6); RBC Distribution Width SD 49.6 fl (35.1-43.9); Red Blood Count 3.72 M/mm3 (4.2-5.4); White Blood Count 10.9 K/mm3 (4.4-11.0)
[2022-07-24] MEDS: oxyCODONE 5 MG Tablet PO (23:28)
[2022-07-24] MEDS: Ondansetron 4 MG/2 ML Vial IV (23:28)
[2022-07-24 23:34] LABS: International Normalized Ratio 1.1; Prothrombin Time (Protime)PT. 13.5 SECONDS (11.7-14.9)
[2022-07-24 23:35] LABS: Partial Thromboplast Time 37.8 Seconds (24.1-36.2)
[2022-07-24 23:36] VITALS: BP 112/54; PULSE 89; RESP 15; TEMP 38.2; O2SAT 95
[2022-07-24 23:51] LABS: ALB/GLOB Ratio 0.7 RATIO (0.9-2.4); AST(SGOT) 24 U/L (15-37); Alanine Aminotransfer ALT/SGPT 28 U/L (13-56); Albumin, Serum 2.6 g/dL (3.2-5.0); Alkaline Phosphatase 57 U/L (45-117); Anion Gap 5 (5-15); BUN 21 mg/dL (7-18); Calcium,Total 8.4 mg/dL (8.5-10.1); Chloride 104 mmol/L (98-107); Creatinine, Serum 0.91 mg/dL (0.55-1.02); EST Glomerular Filtration Rate 66 mL/min (>60); Est Glom Filt Rate - Afr Amer 80 mL/min (>60); Estimated Creatinine Clearance 53.02 ml/min; Globulin 3.7 g/dL (2.2-4.2); Glucose 108 mg/dL (74-106); Potassium 4.3 mmol/L (3.5-5.1); Protein, Total 6.3 g/dL (6.4-8.2); Sodium Level 132 mmol/L (136-145)
[2022-07-24 23:55] LABS: Lactic Acid 0.9 mmol/L (0.4-1.9)
[2022-07-25] LABS: Erythrocyte Sedimentation Rate 60 mm/hr (0-30)
[2022-07-25 00:25] VITALS: BP 104/59; PULSE 88; RESP 16; TEMP 37.7; O2SAT 98
[2022-07-25 02:00] VITALS: BP 111/69; PULSE 68; RESP 16; TEMP 36.7; O2SAT 98
[2022-07-25 03:00] VITALS: BP 110/60; PULSE 68; RESP 16; TEMP 37.3; O2SAT 98
[2022-07-25 04:00] VITALS: BP 112/56; PULSE 87; RESP 16; TEMP 36.7; O2SAT 98
[2022-07-25 04:27] VITALS: BP 133/86; PULSE 91; RESP 16; TEMP 37.4; O2SAT 100
== END 2022-07-25 05:00 | disposition home or self-care (01) ==
PROVIDERS: Emergency Provider Emergency Medicine; PCP Internal Medicine; Visit Provider Emergency Medicine
DX: R50.82 Postprocedural fever (principal); R05.9 Cough, unspecified; M79.89 Other specified soft tissue disorders; I10 Essential (primary) hypertension; F17.210 Nicotine dependence, cigarettes, uncomplicated; Z96.651 Presence of right artificial knee joint; Z79.899 Other long term (current) drug therapy
CPT/HCPCS: 71045; 80053; 81001; 83605; 85025; 85610; 85652; 85730; 86140; 87040; 87086; 87088; 87428; 93005; 96374; 99285; A4216; J2405

== ENCOUNTER 2023-03-14 12:30 | Outpatient (RCR) | payer OTHER, BC, SELFPAY ==
--- NOTE | 2022-11-08 15:50 | HP.PTEVAL ---
Patient's Visit Information Visit Information Visit Information: DENISSE MCMULLEN is a 62 year old F referred to Physical Therapy by Dr. Jaya Huitron DO with a diagnosis of B knee OA. Date of Evaluation: 11/08/22 Physical Therapist: Malik Judge DPT Visit Plan Frequency: 3x /Week Duration: 6 Weeks Plan: Start with functional strengthening, including glute med/max, calf, quad, HS. Progress step ups and squatting. Pt. also educated to start a progressive walking program in order to get back to all work related walking and standing times. Subjective Subjective: Pt. is here today for her initial evaluation with diagnosis of knee OA. Pt. reports everything started in 2016 when she fell on her knees. She ultimately had both knees replaced with the R one on July 2022. Pt. has had both knees replaced. She reports that her ROM has improved, but still feels really weak. Difficulty sleeping. Patient has done traditional land PT, but is still having issues with her strength and endurance. 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 Pt. has been able to walk with her cane with good tolerance, she does not use cane in home. She reports prolonged walking and stairs are difficult. Pt. is hopeful to increase her BLE strength in order to get back to work and recreational activities without limitations. Pain R knee: Pain Intensity (Out of 10): 2 Pain Intensity Range: 1 and 7 L knee: Pain Intensity (Out of 10): 2 Pain Intensity Range: 1 and 7 Objective Objective: POSTURE: Pt. has normal knee posture in stance. Slight increase in [place]. PALPATION: Pt. has good tolerance, no increase in pain with palpation. NEURO: Normal sensation in BLEs. ROM: R knee 0-0-125deg, L knee 0-0-124deg. MMT: RLE: ankle 5/5 throughout; knee ext 20.7#, flexion 17.5#; hip: flexion 21.1#, abd 17.8# LLE: ankle 5/5 throughout; knee: 22.7#, flexion 17.0#; hip: flexion 19.9#, abd 19.2# GAIT: Pt. ambulates with SPC with good posture and good control. She does fatigue fairly rapidly after ~500 feet. STAIRS: Pt. able to complete with B HR with reciprocal pattern. Descended well with good ROM tolerance. Pt. has some functional weakness with ascending and descending, BLEs. Balance/Special Test Scores Lower Extremity Functional Score: 28 TUG Test Time Seconds: 12.89 6 Minute Walk Test: Pt. walked 4:31 minutes. Pt. ambulated 498feet with SPC. Goals Goal 1:: LTG: pt. to be I with HEP in aquatic setting. Goal Time Frame: 4-6 Weeks Goal 2:: LTG: Pt. to have increased strength throughout BLE by 10# throughout. Goal Time Frame: 4-6 Weeks Goal 3:: LTG: Pt. to be able to negotiate 1 flight of stairs with 1 HR with good negro reciprocal pattern. Goal 4:: LTG: pt. to complete 6 MWT with distance of greater than 1000feet. with SPC. Goal Time Frame: 4-6 Weeks Rehabilitation Potential Physical Therapy Diagnosis: Pt. has signs and symptoms consistent with B knee OA with B knee replacements. She has good ROM of B knees, but does have some marked weakness bilaterally and fatigues rapidly. I would like her to work in the aquatic setting, working on strength, general mobility, and functional strengthening. Rehabilitation Potential: Good Anticipated Interventions Patient/Client Instruction: Educate patient on: Condition, Plan of Care, Risk Factors and Benefits of Fitness Program For the Purpose of:: To facilitate caregiver knowledge, To improve self management, To prevent re-injury, To improve ability to perform tasks related to life management and To improve tolerance to ADL's Therapeutic Exercise to Include: Strength training, Power training, Endurance training, Balance training, Postural training, Flexibilty training, Gait and locomotor training and In an aquatic setting For the Purpose of:: To decrease pain, To increase ROM, To improve nutrient delivery to tissue, To improve muscle performance and motor function, To improve gait and locomotor functions, To improve health of tissue, To increase flexibility/ROM and To improve endurance Text: Thank you for the opportunity to evaluate your patient. For Medicare and Medicare HMO plans, please review the plan of care and approve it. It will need to be FAXED BACK to us at [phone] for Medicare purposes. For Medicare only, by signing this I certify the plan of care. Please let me know if there are questions or concerns regarding this plan of care. Physician Signature: Date:
--- NOTE | 2022-12-31 12:03 | HP.PTREVAL ---
Re-Evaluation Intro: Dr. Jaya Huitron, DO, It has been my pleasure to treat PAULINA MCMULLEN over the last 17 visits for B knee OA. Please see the progress note below for an update on the physical therapy plan of care! Subjective Subjective: Pt. reports overall doing better, but is still having some issues with her L knee giving on her. She reports feeling weak in her L leg. Pt. reports overall having good improvement. Pt. to follow up with physician in mid Jan. Objective Objective/Function: INITIAL MMT: MMT: RLE: ankle 5/5 throughout; knee ext 20.7#, flexion 17.5#; hip: flexion 21.1#, abd 17.8# LLE: ankle 5/5 throughout; knee: 22.7#, flexion 17.0#; hip: flexion 19.9#, abd 19.2# CURRENT MMT: RLE: ankle 5/5 throughout; knee ext: 26.#, flexion 20.7#; hip: 27.9#, abd: 23.7# LLE: ankle 5/5 throughout; knee: ext: 20.6#; flexion: 16.9#; hip: flexion 24.8#, abd: 25.0# CURRENT ROM: L knee 0-0-125deg, R KNEE: 0-0-127deg. 6 MWT: 1147 feet without AD STAIRS: PT. did well on the stairs, some functional weakness with pushing up with LLE. 2 HR to complete. Pt. able to decent with 1 HR with reciprocal pattern, but reports tightness in B knees with descending. Overall paulina has improved with her strength in BLEs since her initial evaluation, except a slight regression in her L quad. She is no longer using a SPC with gait and walked much further with her 6 MWT. Plan Plan Plan: Due to her progress with strength and mobility. I would recommend that she continue in aquatic therapy with progressive quad, HS and hip strengthening. Balance/Gait/Functional tests Balance/Special Test Scores Lower Extremity Functional Score: 39 TUG Test Time Seconds: 12.89 Tug Test: <20 sec.=mostly independent 6 Minute Walk Test: 1147 without AD. Goals Goals Goal 1:: LTG: pt. to be I with HEP in aquatic setting. Goal Time Frame: 4-6 Weeks Goal Progress: Progressing Goal 2:: LTG: Pt. to have increased strength throughout BLE by 10# throughout. Goal Time Frame: 4-6 Weeks Goal Progress: Progressing Goal 3:: LTG: Pt. to be able to negotiate 1 flight of stairs with 1 HR with good negro reciprocal pattern. Goal 4:: LTG: pt. to complete 6 MWT with distance of greater than 1000feet. with SPC. Goal Time Frame: 4-6 Weeks Goal Progress: Goal Met Anticipated Interventions Anticipated Interventions Patient/Client Instruction: Educate patient on: Condition, Plan of Care, Risk Factors and Benefits of Fitness Program For the Purpose of:: To facilitate caregiver knowledge, To improve self management, To prevent re-injury, To improve ability to perform tasks related to life management and To improve tolerance to ADL's Therapeutic Exercise to Include: Strength training, Power training, Endurance training, Balance training, Postural training, Flexibilty training, Gait and locomotor training and In an aquatic setting For the Purpose of:: To decrease pain, To increase ROM, To improve nutrient delivery to tissue, To improve muscle performance and motor function, To improve gait and locomotor functions, To improve health of tissue, To increase flexibility/ROM and To improve endurance Re-Evaluation Ending Re-evaluation ending: Please do not hesitate to contact me at [phone] by phone or if you have questions or concerns regarding this new plan of care! Sincerely, Malik Judge DPT
--- NOTE | 2023-03-14 15:14 | HP.PTREVAL ---
Re-Evaluation Intro: Dr. Jaya Huitron, DO, It has been my pleasure to treat DENISSE MCMULLEN over the last 33 visits for B knee OA. Please see the progress note below for an update on the physical therapy plan of care! Subjective Subjective: Pt. reports overall being better. Pt. reports being 15% better on left and 50% on the R knee. She is still having some swelling issues with prolonged mobility. Pt. reports that her L leg wants to go the out side at times. She does report of buckling in the L knee, but no recent falls. Objective Objective/Function: MMT: R knee: ext 22.0#, flexion 14.6# LLE: knee: ext 14.7#, flexion 15.1# 30 sec sit to stand rep test: 11 reps with B knee pain noted. TU.75sec 6 MWT: 1397 feet. Pt. reports increased pain limiting with further ambulation. stairs: Pt. is able to ascend and descend with reciprocal pattern with use of 2 HR. gait: pt. ambulates without AD, but some slight antalgic pattern during L stance phase. Pt. is overall improving. She still has marked weakness in her quads from L to R. This is also seen in her difficulty with stairs and with repeated sit to stand. She is able to walking, but still limited with distances secondary to LLE fatigue and pain. I would Plan Plan Plan: I am recommending that she continue in the pool with focus on quad strengthening and progressive stability. She is pretty I with her pool exercises, but does not have access to a pool other than at PT. I would recommend either continuing pool exercises in therapy or trying to have access for to complete I on her own. She does have some strength limitations showing need to continue with PT. Balance/Gait/Functional tests Balance/Special Test Scores Lower Extremity Functional Score: 39 TUG Test Time Seconds: 10.75 Tug Test: <20 sec.=mostly independent 30 Second Chair Rise Test Seconds: 11 6 Minute Walk Test: 1397 feet with no AD. Pt. reports increased B knee pain with increased walking. Goals Goals Goal 1:: LTG: pt. to be I with HEP in aquatic setting. Goal Time Frame: 4-6 Weeks Goal Progress: Progressing Goal 2:: LTG: Pt. to have increased strength throughout BLE by 10# throughout. Goal Time Frame: 4-6 Weeks Goal Progress: Progressing Goal 3:: LTG: Pt. to be able to negotiate 1 flight of stairs with 1 HR with good negro reciprocal pattern. Goal Progress: Progressing Goal 4:: LTG: pt. to complete 6 MWT with distance of greater than 1000feet. with SPC. Goal Time Frame: 4-6 Weeks Goal Progress: Goal Met Anticipated Interventions Anticipated Interventions Patient/Client Instruction: Educate patient on: Condition, Plan of Care, Risk Factors and Benefits of Fitness Program For the Purpose of:: To facilitate caregiver knowledge, To improve self management, To prevent re-injury, To improve ability to perform tasks related to life management and To improve tolerance to ADL's Therapeutic Exercise to Include: Strength training, Power training, Endurance training, Balance training, Postural training, Flexibilty training, Gait and locomotor training and In an aquatic setting For the Purpose of:: To decrease pain, To increase ROM, To improve nutrient delivery to tissue, To improve muscle performance and motor function, To improve gait and locomotor functions, To improve health of tissue, To increase flexibility/ROM and To improve endurance Re-Evaluation Ending Re-evaluation ending: Please do not hesitate to contact me at [phone] by phone or if you have questions or concerns regarding this new plan of care! Sincerely, Malik Judge DPT
== END 2023-03-14 19:00 | disposition home or self-care (01) ==
LOC: PT 12:30
PROVIDERS: PCP Internal Medicine; Referring Provider Orthopaedic Surgery; Visit Provider Orthopaedic Surgery
DX: M17.31 Unilateral post-traumatic osteoarthritis, right knee (principal)
CPT/HCPCS: 97113; 97161; 97164

== ENCOUNTER 2023-06-02 09:16 | Outpatient (RCR) | payer OTHER, BC, SELFPAY ==
--- NOTE | 2023-06-06 10:44 | HP.FCE ---
Task Lift Floor (Occasional 1-33% of Day): 25# Floor (Frequent 34-66% of Day): 12.5# Floor (Constant 67-100% of Day): NA Floor PDL: Light-Medium Knee (Occasional 1-33% of Day): 25# Knee (Frequent 34-66% of Day): 12.5# Knee (Constant 67-100% of Day): NA Knee PDL: Light-Medium Waist (Occasional 1-33% of Day): 25# Waist (Frequent 34-66% of Day): 12.5# Waist (Constant 67-100% of Day): NA Waist PDL: Light-Medium Shoulder (Occasional 1-33% of Day): 25# Shoulder (Frequent 34-66% of Day): 12.5# Shoulder (Constant 67-100% of Day): NA Overhead (Occasional 1-33% of Day): 10# Overhead (Frequent 34-66% of Day): NA Overhead (Constant 67-100% of Day): NA Overhead PDL: Sedentary Comments: Light Medium Physical Demand level for lifting at floor- knee- waist- shoulder Sedentary Physical Demand level for overhead lift pt can not lift on a constant ability due to bilateral knee pain. Work Activity/Posture Bending: Occasional Ability (1-33% of day) Squatting: Occasional Ability (1-33% of day) Comments: low ability with external support narrow base of support Kneeling: No Ablility (0% of day) Reaching out: Frequent Ability (34-66% of day) Reaching up: Occasional Ability (1-33% of day) Sitting: Frequent Ability (34-66% of day) Walking: Occasional Ability (1-33% of day) Standing: Occasional Ability (1-33% of day) Comments: with shifting body weight Reference Reference: Duration Sedentary Sedentary Light Light Light Medium Medium Medium Heavy Very Heavy Heavy Occasional (0-33% of day) Frequent (34-66% of day) Constant (67-100% of day) 10 # Negligible Negligible 15 # 8 # Negligible 20 # 10# Negli. 35 # 18 # 7 # 50 # 25 # 10 # 75 # 100 # >100 # 38 # 50 # >50 # 15 # 20 # >20 # Patient Information Height: 1.6 m Weight:: 95.254 kg Hand Dominance: right Medical History Medical History Including Restrictions: Pt reports she was in good health until 12/20/2016 when she injured her knees at work. Pt states she walked out and caught a rug- went down on both knees. Went to Work Med. states x-rays were taken was told everything was fine- pt states the next day her right leg was brushing and went back to Work Med- was sent to ER and soon after MRI found the tears. pt states she wore braces on bilateral knees for years- (right leg 3 yrs and left leg 5 yrs) pt states she underwent surgical repair in 2018 Left repair in September 2018 -( states kept her off work for 5 months) right repair in 2018 ( states she went back to work 2018) Pt states she went back to work with work restrictions: No push/pull, lift more than 25#, no squatting, kneeling. pt states she had to have another sx on left knee in Nov 2021- left TKR. pt did again do several rounds of Physical Therapy pt states right knee sx was July of 2022 a TKR follow with Aqua therapy following. pt state at this time she still has work restrictions giving by the ortho . pt does do chair yoga 6 days a week. Pt states she does smoke but will quit next week. Diagnoses Diagnoses: Right knee contusion left knee contusion Tear of medial meniscus Tear of lateral Meniscus Right TKR Left TKR Symptoms Symptoms: left knee instability bilateral Knee pain palpation tenderness Stiffness sleep interruption Pain Pain: pt states current pain is 3/10 pt states she will take at times pain medication Samira pain questionnaire Interpretation: ? minimum pain score: 0 (would not be seen in a person with true pain) ? maximum pain score: 78 ? The higher the pain score the greater the pain. References: Yessica Shepherd. The Samira Pain Questionnaire: Major properties and scoring methods.References: Yessica Shepherd. The Samira Pain Questionnaire: Major properties and scoring methods. Pain. 1975; 1: 277-299. Jong Tatum. The [place] counterpart to Samira Pain Questionnaire. Pain. 1988; 32: 251-255. 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 Pt states she was required to perform stocking shelves, pt states she was required to move rollatiners ( was not to weigh over 600lbs)- pt states she was responsible for cleaning- stocking- sifuentes register and office work ie order of supplies. states lifting requirements are 55# on occasional ability and 40# on frequent ability. Pt states when she went back to work she was told not to work more than 10hrs. Pt states when she was working she was required to work more than 10 hrs. Pt states she has been off work since 2020 Due to corporation not following work restriction by . Now pt has concerns with being able to lift there required weight to return to work. Behavioral Behavioral: pt corporative with assessment. ADLS ADLS: Pt states she lives ranch home with 1 one large entry step, with use of porch to pull self up step. Pt states there is 15 steps to basement ( laundry room is in basement) with one handrail. pt states she has a small step in shower. pt states she does have grab bars. Pt states she is IND with dressing and bathing. pt states Dtrs family lives in refinished basement- her dtr helps with heavy house cleaning. states her dtr and son in law do most of cooking and will help with laundry. (grandchildren 7& 5). pt states she does drive short distances. pt states she will take her step father grocery shopping. Physical Examination Physical Examination: resting heart rate 80 max heart rate 121 during assessment ROM: With ROM of bilateral knees 0* extension and flexion 120* pt states her ROM of her knees following her TKR has always been good. Strength: Fet2 peak force testing shoulder flexion right: 5.2# left 8# shoulder extension right 20# left 16# Biceps right 18# left 23# Triceps right 13# left 16# Hip flexion right 24# left 22# with pain at knee 5/10 Quadriceps right 25# left 20# Hamstrings right 25# with pain left 24.3# with pain Right Knurling Machine Operator Strength Average: 43.33 Right Knurling Machine Operator Strength Percentile: 19% Left Knurling Machine Operator Strength Average: 47.33 Left Knurling Machine Operator Strength Percentile: 36% Right Lateral Pinch Average: 11.00 Right Lateral Pinch Percentile: 50% Left Lateral Pinch Average: 10.00 Left Lateral Pinch Percentile: 25% Right Tripod Pinch Average: 12.00 Right Tripod Pinch Percentile: 50% Left Tripod Pinch Average: 10.66 Left Tripod Pinch Percentile: 50% Sensation: denies Fine Motor: denies Balance: Function reach testing total reach of 8 Interpretation: A score of 6 or less indicates a significant increased risk for falls. A score between 6-10 inches indicates a moderate risk for falls. Non Material Handling Activities Bending: pt demo the ability to bend forward 3/3x, 7/10 ( left knee cramping requied rest period for 20 sec) but finished heart 92 pt demo the ability to bend forward 6/10 pt became light headed and reach out for balance ( heart rate 122) pt demo the ability to bend forward on occasional ability Squatting: pt demo the ability to squat 3/3x, 10/10. pt unable to perform 10/10x rapidly pt required external support with task (pts heart rate 120) pain left knee pain 5/10 with pulling right knee 4.5/10 pt can squat on occasional ability ( noted limited base of support) Kneeling: unable Reaching out/up: pt demo the ability to reach out 3/3x, 10/10, and 10/10x rapidly heart rate 82 pt can reach out on frequent ability pt demo the ability to reach up with left UE 3/3, 10/10 need rest break for 1 min 10/10 rapidly pt can reach up on occasional ability heart rate 120 Walking: pt ambulated 8 min 34 sec. pt ambulates with an antalgic gait pattern. pt started at quick ambulation pace and at 6 min pts ambulation pace did slow down. pt did required short rest break 30 sec. total ambulation time 8 min 34 sec. Pt heart rate 105 and reported bilateral knee pain 5/10. pt can ambulate on occasional ability, Standing: pt demo standing for 4 min with shifting body weight. pt can stand on occasional ability with shifting her body weight. Sitting: pt demo the ability to sit for 50 min with no apparent or expressed discomfort pt can sit on frequent ability Climbing Stairs: 10 steps : pt ascended and descended 10 steps with a single step reciprocal step pattern with use of bilateral hand rails. pt did require increase time to perform. pt stated following bilateral knee pain 5/10. heart rate 119 Dynamic Occasional Lifting Capacity Floor Lift: pt demo the ability to lift 25# maximally from floor level with fair lifting mechanics and narrow base of support. Knee Lift: pt demo the ability to lift 25# maximally from knee level with fair lifting mechanics and narrow base of support. Waist Lift: pt demo the ability to lift 25# maximally from waist level with fair lifting mechanics. Shoulder Lift: pt demo the ability to lift 25# maximally from shoulder level with fair lifting mechanics. pt lift from waist to shoulder height lifting center of body to left. Overhead Lift: pt demo the ability to lift 10# maximally from floor level with fair lifting mechanics. Carryin# + 15# box for 20 feet- set down wt and carried back- noted increase retro lean to off set wt. as well as straight leg shuffle more than knee and hip flexion. Comments: heart rate with lifting increased to 121 pt states pain increased to 5/10 more in left knee right knee 4/10 pt demo the ability to carry 15# for 20 feet than needed set weight down- took short break and then carried 15# back the 20 feet. pt ambualtes with antalgic gait pattern keeping weight close to her body.
--- NOTE | 2023-06-06 10:44 | HP.OTFCE.D ---
FCE D/C Summary Discharge text: DENISSE MCMULLEN was seen for a one time visit for an FCE on 06/02/23 and is discharged.
== END 2023-06-02 19:00 | disposition home or self-care (01) ==
LOC: OT 09:16
PROVIDERS: PCP Internal Medicine
DX: S83.242D Other tear of medial meniscus, current injury, left knee, subsequent encounter (principal); S83.281D Other tear of lateral meniscus, current injury, right knee, subsequent encounter
CPT/HCPCS: 97750

== ENCOUNTER → 2025-03-13 | Outpatient (CLI) | payer MEDICAID, SELFPAY ==
--- NOTE | 2025-03-13 13:27 | CT_ITS ---
PROCEDURE: EXTREMITY UPPER WITHOUT CONTRA 03/13/2025 REASON FOR EXAM: PAIN TECHNIQUE: Procedure Code: [id number] Modality: CT Procedure: EXTREMITY UPPER WITHOUT CONTRA Coronal and Sagittal reconstruction series were provided. One or more dose reduction techniques were used (e.g., Automated exposure control, adjustment of the mA and/or kV according to patient size, use of iterative reconstruction technique. RADIATION DOSE SUMMARY: DLP: 767 mGycm COMPARISON: None FINDINGS: There is severe osteoarthritis of the glenohumeral articulation with flattening of the articular surfaces, subcortical cyst formation, and marginal osteophytes. No acute fracture or dislocation is identified. There is loss of the subacromial space consistent with rotator cuff disease. There is mild supraspinatus muscular atrophy. The AC joint shows mild hypertrophy without separation. There is a type 3 acromion with impingement configuration. There is no soft tissue mass or cyst identified. Emphysema is noted in the included portion of the right lung apex. CT/Extremity Upper without Contra IMPRESSION: There is severe osteoarthritis of the glenohumeral articulation with flattening of the articular surfaces, subcortical cyst formation, and marginal osteophytes. There is loss of the subacromial space consistent with rotator cuff disease. There is mild supraspinatus muscular atrophy. The AC joint shows mild hypertrophy without separation. There is a type 3 acromion with impingement configuration. Reading Location: [facility]
== END | disposition home or self-care (01) ==
LOC: CT 13:24
PROVIDERS: PCP Nurse Practitioner; Referring Provider Specialist; Visit Provider Specialist
DX: M25.511 Pain in right shoulder (principal)
CPT/HCPCS: 73200